=== PATIENT | female | born 1925 | race Caucasian/White ===

== ENCOUNTER 2016-12-21 10:52 | Outpatient (CLI) ==
[2016-12-22 00:48] VITALS: BMI 18.4
== END 2016-12-21 10:53 | disposition home or self-care (01) ==
LOC: AMBL 10:52
PROVIDERS: ATTEND Internal Medicine
DX: R41.82 Altered mental status, unspecified (principal); R42 Dizziness and giddiness; F03.90 Unspecified dementia, unspecified severity, without behavioral disturbance, psychotic disturbance, mood disturbance, and anxiety; Z95.0 Presence of cardiac pacemaker

== ENCOUNTER 2016-12-21 11:05 | Emergency (ER) ==
[2016-12-21 11:12] VITALS: BP 126/76; TEMP 97.9; BMI 17.2
[2016-12-21 12:18] LABS: BASOPHILS # (AUTO) 0.1 K/uL (0-0.2); EOSINOPHILS # (AUTO) 0.1 K/ul (0.0-0.7); EOSINOPHILS % (AUTO) 1.6 % (0.0-7.0); HEMATOCRIT 37.9 % (37.0-47.0); HEMOGLOBIN 12.4 g/dl (12.0-16.0); IMMATURE GRANULOCYTE % (AUTO) 0.3 % (0.0-5.0); LYMPHOCYTES # (AUTO) 1.1 K/uL (0.60-3.4); LYMPHOCYTES % (AUTO) 17.8 (10.0-50.0); MEAN CORPUSCULAR HGB CONC 32.7 (31.8-35.4); MEAN CORPUSCULAR VOLUME 94.8 fl (81.0-99.0); MONOCYTES # (AUTO) 0.6 K/uL (0.4-2.0); MONOCYTES % (AUTO) 9.9 (0-10); NEUTROPHILS # (AUTO) 4.4 K/ul (2.0-6.9); NEUTROPHILS % (AUTO) 69.4; PLATELET COUNT 225 10^3/uL (140-440); WHITE BLOOD COUNT 6.29 K/ul (4.6-10.2)
--- NOTE | 2016-12-21 12:30 | DI ---
EXAM: CHEST FRONTAL VIEW HISTORY: Cough. COMPARISON: None FINDINGS: Heart size is borderline enlarged. There is mild to moderate aortic atherosclerosis. Le ft-sided pacemaker unit is noted. There is diffuse, chronic appearing interstitial accentuation. L ungs are hyperinflated and there is relative lucency of the lung zones suggesting emphysema. Discoi d opacity in the left lower lung may represent scarring, atelectasis or focal pneumonia. No pleural fluid. IMPRESSION: A thin discoid opacity in the left lower lobe could represent atelectasis, scarring or mild pneumonia.
--- NOTE | 2016-12-21 12:44 | CT ---
EXAM: CT BRAIN HISTORY: Altered mental status TECHNIQUE: CT brain without intravenous contrast. 5-mm axial sections with Reformations. COMPARISON: None FINDINGS: There is generalized atrophy, not inconsistent with age. Moderately severe chronic microvascular is chemic change is suggested. Brain otherwise is unremarkable without distinct evidence of hemorrhage or large vessel distribution recent ischemic infarction. There is no suggestion of acute hydrocepha aravind or subdural fluid collection. No mass or mass effect. Cranium is within normal limits. Mastoid air cells are aerated. The visualized paranasal sinuses are clear. IMPRESSION: Involutional changes as described. No acute intracranial process identified.
[2016-12-21 12:49] LABS: ALANINE AMINOTRANSFERASE 16 U/L (12-78); ALBUMIN 3.7 g/dL (3.4-5.0); ALKALINE PHOSPHATASE 88 U/L (53-141); ANION GAP 11.6; ASPARTATE AMINO TRANSFERASE 16 U/L (15-37); BILIRUBIN,TOTAL 0.64 mg/dL (0.00-1.20); BLOOD UREA NITROGEN 11 mg/dL (7-18); BUN/CREATININE RATIO 12.79; CALCIUM 9.2 mg/dL (8.2-10.2); CARBON DIOXIDE 28 mmol/L (23-31); CHLORIDE 104 mmol/L (98-107); CREATININE 0.86 mg/dL (0.60-1.30); GLUCOSE 98 mg/dL (82-115); POTASSIUM 3.6 mmol/L (3.5-5.10); SODIUM 140 mmol/L (136-145); TOTAL PROTEIN 7.4 g/dL (5.8-8.1)
[2016-12-21 13:00] LABS: BILIRUBIN,URINE 1+ (NEGATIVE); KETONES,URINE Trace (NEGATIVE); LEUKOCYTE ESTERASE ,URINE 3+ (NEGATIVE); NITRITE,URINE Positive (NEGATIVE); PH,URINE 6.5 (5-9); PROTEIN,URINE 1+ (NEGATIVE); URINE, BLOOD Trace-intact (NEGATIVE)
[2016-12-21 13:04] LABS: ADD URINE MICROSCOPIC YES
[2016-12-21 13:05] LABS: BACTERIA,URINE 2+ (NOT PRESENT)
[2016-12-21] MEDS ORDERED: LIDOCAINE 1 % AMP 5 ML (SUTURES) IM STA (13:06)
[2016-12-21] MEDS ORDERED: ROCEPHIN IM STA (13:06)
--- NOTE | 2016-12-21 13:10 | ED.PDOC ---
General ED Provider: Dr. DARWIN PUTNAM Chief Complaint: Altered Mental Status Stated Complaint: altered Time Seen by Physician: 11:10 (arrived fully intact) Mode of Arrival: Ambulance Information Source: Patient Exam Limitations: No limitations Primary Care Provider: SAURABH GLORIA Nursing and Triage Documentation Reviewed and Agree: Yes Neurological Complaint Exam - Altered Mental Status Complaint/Exam Current Mental Status: Confusion Onset: Gradual Symptoms Are: Resolved Initial Severity: Mild Current Severity: None Eye Deviation Present: No Aggravating: Reports: None Alleviating: Reports: Spontaneous resolution Associated Signs and Symptoms: Denies: Dizziness, Weakness, Headache, Fever, Illness, Nuchal rigidity, Seizure, Nausea, Vomiting, Recently depressed, Trauma Review of Systems - Review Of Systems Constitutional: Reports: No symptoms Eyes: Reports: No symptoms Ears, Nose, Mouth, Throat: Reports: No symptoms Respiratory: Reports: No symptoms Cardiac: Reports: No symptoms GI: Reports: No symptoms : Reports: No symptoms Musculoskeletal: Reports: No symptoms Skin: Reports: No symptoms Neurological: Reports: Cognitive dysfunction Endocrine: Reports: No symptoms Hematologic/Lymphatic: Reports: No symptoms All Other Systems: Reviewed and Negative Past Medical History - Past Medical History Previously Healthy: No Endocrine: Reports: None Cardiovascular: Reports: None Respiratory: Reports: None Hematological: Reports: None Gastrointestinal: Reports: None Genitourinary: Reports: None Neuro/Psych: Reports: None Musculoskeletal: Reports: None Cancer: Reports: None Last Menstrual Period: n/a - Surgical History General Surgical History: Reports: Unknown - Family History Family History: Reports: Unknown - Social History Smoking Status: Former smoker Hx Substance Use: No Alcohol Screening: None Physical Exam - Physical Exam Appearance: Well-appearing, No pain distress, Well-nourished Eyes: NISREEN, EOMI, Conjunctiva clear ENT: Ears normal, Nose normal, Oropharynx normal Respiratory: Airway patent, Breath sounds clear, Breath sounds equal, Respirations nonlabored Cardiovascular: RRR, Pulses normal, No rub, No murmur GI/: Soft, Nontender, No masses, Bowel sounds normal, No Organomegaly Musculoskeletal: Normal strength, ROM intact, No edema, No calf tenderness Skin: Warm, Dry, Normal color Neurological: Sensation intact, Motor intact, Reflexes intact, Cranial nerves intact, Alert, Oriented Psychiatric: Affect appropriate, Mood appropriate Interpretation - Radiology Interpretation Radiology Interpretation By: Radiologist Radiology Results: No acute changes Re-Evaluation - Re-Evaluation Time of Re-Evaluation: 12:00 Status: Improved Vital Signs Stable: Yes Pain Level: 0 Appearance: NAD Lungs: Clear Skin: Warm and Dry Neuro: Alert and Oriented X3 CV: RRR - Re-Evaluation Time of Re-Evaluation: 13:10 (fully intact robbin at bedside) Status: Improved Vital Signs Stable: Yes Pain Level: 0 Appearance: NAD Skin: Warm and Dry Neuro: Alert and Oriented X3 CV: RRR Critical Care Note - Critical Care Note Total Time (mins): 0 Course - Course Hematology/Chemistry: 12/21/16 12:05 12/21/16 12:05 Orders, Labs, Meds: Lab Review 12/21/16 12/21/16 12:05 12:42 WBC 6.29 RBC 4.00 L Hgb 12.4 Hct 37.9 MCV 94.8 MCH 31.0 MCHC 32.7 RDW Coeff of Zack 14.0 Plt Count 225 Immature Gran % (Auto) 0.3 Neut % (Auto) 69.4 Lymph % (Auto) 17.8 [place] % (Auto) 9.9 Eos % (Auto) 1.6 Baso % (Auto) 1.0 Immature Gran # (Auto) 0.0 Neut # 4.4 Lymph # 1.1 [place] # 0.6 Eos # 0.1 Baso # 0.1 Sodium 140 Potassium 3.6 Chloride 104 Carbon Dioxide 28 Anion Gap 11.6 BUN 11 Creatinine 0.86 Estimated GFR (MDRD) 62.00 BUN/Creatinine Ratio 12.79 Glucose 98 Lactic Acid 9.0 Calcium 9.2 Total Bilirubin 0.64 AST 16 ALT 16 Alkaline Phosphatase 88 Troponin I < 0.0100 Total Protein 7.4 Albumin 3.7 Globulin 3.7 Albumin/Globulin Ratio 1.00 Urine Color Yellow Urine Clarity Cloudy Urine pH 6.5 Ur Specific Whittaker 1.015 Urine Protein 1+ Urine Glucose (UA) Negative Urine Ketones Trace Urine Blood Trace-intact Urine Nitrite Positive Urine Bilirubin 1+ Urine Urobilinogen 1.0 Ur Leukocyte Esterase 3+ Urine Microscopic RBC 2-5 Urine Microscopic WBC 50-100 Ur Squamous Epith Cells Not present Urine Bacteria 2+ Orders Category Date Time Status EKG-(ED ONLY) Stat CARDIO 12/21/16 11:42 Completed BLOOD CULTURE Stat LAB 12/21/16 12:05 Received CBC W/ AUTO DIFF Stat LAB 12/21/16 12:05 Completed COMPREHENSIVE METABOLIC PANEL Stat LAB 12/21/16 12:05 Completed LACTIC ACID Stat LAB 12/21/16 12:05 Completed TROPONIN I Stat LAB 12/21/16 12:05 Completed URINALYSIS C & S IF INDICATED Stat LAB 12/21/16 12:42 Completed URINE CULTURE Stat LAB 12/21/16 12:42 Received Ceftriaxone Sodium [Rocephin] MEDS 12/21/16 13:06 Stat 1 gm IM ONCE STA Lidocaine HCl/Pf [Lidocaine 1 % Amp 5 ml (Sutures)] MEDS 12/21/16 13:06 Stat 2.1 ml IM ONCE STA CHEST, 1V AP ONLY Stat RADS 12/21/16 11:[address] HEAD W/O CONTRAST Stat RADS 12/21/16 11:41 Completed Medications Generic Name Dose Route Start Last Admin Trade Name Freq PRN Reason Stop Dose Admin Ceftriaxone Sodium 1 gm 12/21/16 13:06 Rocephin IM 12/21/16 13:07 ONCE STA Lidocaine HCl 2.1 ml 12/21/16 13:06 Lidocaine 1 % Amp 5 Ml (Sutures) IM 12/21/16 13:07 ONCE STA Vital Signs: Temp Pulse Resp BP Pulse Ox 12/21/16 11:05 97.9 F 67 16 126/76 96 Departure - Departure Time of Disposition: 13:10 Disposition: HOME SELF-CARE Discharge Problem: Altered mental status, Urinary tract infection Instructions: Urinary Tract Infection in Women (ED) Condition: Good Pt referred to PMD for follow-up: No Additional Instructions: Please call your Family Physician as soon as possible to schedule a follow-up appointment. Prescriptions: Sulfamethoxazole/Trimethoprim [Bactrim Ds 800/160 mg] 1 tab PO Q12HR #14 tablet Allergies/Adverse Reactions: Allergies No Known Allergies Allergy (Unverified 12/21/16 11:15) Home Medications: Ambulatory Orders Aspirin 81 mg PO DAILY 12/21/16 Digoxin 125 mcg PO DAILY 12/21/16 Sulfamethoxazole/Trimethoprim [Bactrim Ds 800/160 mg] 1 tab PO Q12HR #14 tablet 12/21/16
== END 2016-12-21 14:00 | disposition home or self-care (01) ==
LOC: ED 11:05
DX: N39.0 Urinary tract infection, site not specified (principal); R41.82 Altered mental status, unspecified; Z79.899 Other long term (current) drug therapy
CPT/HCPCS: 36415; 80053; 81001; 83605; 84484; 85025; 87040; 87086; 93005; 93010; 96375; 99283

== ENCOUNTER 2016-12-21 22:30 | Inpatient (IN) ==
[2016-12-21] MEDS ORDERED: SODIUM CHLORIDE 1,000 ML IV STA (22:34)
[2016-12-21 22:53] LABS: BASOPHILS # (AUTO) 0.1 K/uL (0-0.2); BASOPHILS % (AUTO) 0.6 % (0.0-3.0); EOSINOPHILS # (AUTO) 0.1 K/ul (0.0-0.7); EOSINOPHILS % (AUTO) 1.5 % (0.0-7.0); HEMATOCRIT 40.2 % (37.0-47.0); HEMOGLOBIN 13.3 g/dl (12.0-16.0); IMMATURE GRANULOCYTE % (AUTO) 0.3 % (0.0-5.0); LYMPHOCYTES % (AUTO) 10.8 (10.0-50.0); MEAN CORPUSCULAR HEMOGLOBIN 31.3 pg (27.0-31.0); MEAN CORPUSCULAR HGB CONC 33.1 (31.8-35.4); MEAN CORPUSCULAR VOLUME 94.6 fl (81.0-99.0); MONOCYTES # (AUTO) 0.9 K/uL (0.4-2.0); MONOCYTES % (AUTO) 9.9 (0-10); NEUTROPHILS % (AUTO) 76.9; PLATELET COUNT 241 10^3/uL (140-440); RED BLOOD COUNT 4.25 10^6/ul (4.20-5.40); WHITE BLOOD COUNT 9.05 K/ul (4.6-10.2)
--- NOTE | 2016-12-21 23:10 | ED.PDOC ---
General ED Provider: Dr. BRAYAN STEINBERG-ER Chief Complaint: Altered Mental Status Stated Complaint: she was seen this am for confusion --dx with uti and tx--back tonight with continued confusion Time Seen by Physician: 22:35 Mode of Arrival: Ambulance Information Source: Patient, EMT Exam Limitations: Dementia, Altered mental status Nursing and Triage Documentation Reviewed and Agree: Yes Neurological Complaint Exam - Altered Mental Status Complaint/Exam Current Mental Status: Confusion Last Known Well: yesterday Onset: Gradual Symptoms Are: Still present Initial Severity: Mild Current Severity: Mild Eye Deviation Present: No Character: Reports: Confusion. Denies: Agitation, Responsiveness, Lethargy Aggravating: Reports: None Alleviating: Reports: None Associated Signs and Symptoms: Denies: Dizziness, Weakness, Headache, Fever, Illness, Nuchal rigidity, Seizure, Nausea, Vomiting, Recently depressed, Trauma Related History: Reports: Similar episode Cardiac Risk Factors: Reports: None CVA Risk Factors: Reports: Hypertension Related Surgical History: Reports: None Carotid Bruit Present: No Glascow Coma Scale (see protocol): 14 Nystagmus Present: No Gag Reflex Present: Yes Meningeal Signs Positive: No Focal Weakness: Present: None Focal Sensory Loss: Present: None Gait: Unsteady [id number]: Normal Findings Romberg Test Positive: No Babinski Sign: Negative Right, Negative Left Heel to Toe Normal: Yes Signs of Injury: Present: Normal findings Thrombolytics Considered: No Differential Diagnoses: Metabolic Disorder Review of Systems - Review Of Systems Constitutional: Reports: Fever Eyes: Reports: No symptoms Ears, Nose, Mouth, Throat: Reports: No symptoms Respiratory: Reports: No symptoms Cardiac: Reports: No symptoms GI: Reports: No symptoms : Reports: No symptoms Musculoskeletal: Reports: No symptoms Skin: Reports: No symptoms Neurological: Reports: Cognitive dysfunction Endocrine: Reports: No symptoms Hematologic/Lymphatic: Reports: No symptoms All Other Systems: Reviewed and Negative Past Medical History - Past Medical History Previously Healthy: No Endocrine: Reports: None Cardiovascular: Reports: None Respiratory: Reports: None Hematological: Reports: None Gastrointestinal: Reports: None Genitourinary: Reports: None Neuro/Psych: Reports: None Musculoskeletal: Reports: None Cancer: Reports: None Last Menstrual Period: UNKNOWN - Surgical History General Surgical History: Reports: Unknown - Family History Family History: Reports: Unknown - Social History Smoking Status: Former smoker Hx Substance Use: No Alcohol Screening: None Lives: With family - Immunizations Tetanus Shot up to Date: (UNKNOWN) Physical Exam - Physical Exam Appearance: Well-appearing, No pain distress, Well-nourished Eyes: NISREEN ENT: Ears normal, Nose normal, Oropharynx normal Neck: Supple Respiratory: Airway patent, Breath sounds clear, Breath sounds equal, Respirations nonlabored Cardiovascular: RRR, Pulses normal, No rub, No murmur GI/: Soft, Nontender, No masses, Bowel sounds normal, No Organomegaly Musculoskeletal: Normal strength, ROM intact, No edema, No calf tenderness Skin: Warm, Dry, Normal color Neurological: Sensation intact, Motor intact, Reflexes intact, Cranial nerves intact, Alert, Oriented Psychiatric: Affect appropriate, Mood appropriate Interpretation - Radiology Interpretation Radiology Interpretation By: Radiologist Radiology Results: Negative Exam Interpreted: CT Scan Physician Notification - Case Discussed Physician Notified: dr estrada Time of Notification: 23:42 Critical Care Note - Critical Care Note Total Time (mins): 0 Course - Course Hematology/Chemistry: 12/21/16 22:45 12/21/16 22:45 Orders, Labs, Meds: Lab Review 12/21/16 12/21/16 22:31 22:45 WBC 9.05 RBC 4.25 Hgb 13.3 Hct 40.2 MCV 94.6 MCH 31.3 H MCHC 33.1 RDW Coeff of Zack 14.0 Plt Count 241 Immature Gran % (Auto) 0.3 Neut % (Auto) 76.9 Lymph % (Auto) 10.8 [place] % (Auto) 9.9 Eos % (Auto) 1.5 Baso % (Auto) 0.6 Immature Gran # (Auto) 0.0 Neut # 7.0 H Lymph # 1.0 [place] # 0.9 Eos # 0.1 Baso # 0.1 D-Dimer (Manual) 894.87 Puncture Site Rb O2 Saturation 95.0 ABG pH 7.433 ABG pCO2 38.5 ABG pO2 73.0 L ABG HCO3 25.7 ABG Total CO2 27 ABG Base Excess 1 Edu Test + FiO2 % 21.0 Sodium 141 Potassium 3.7 Chloride 106 Carbon Dioxide 26 Anion Gap 12.7 BUN 16 Creatinine 0.86 Estimated GFR (MDRD) 62.00 BUN/Creatinine Ratio 18.60 Glucose 101 Lactic Acid 8.5 Calcium 9.6 Total Bilirubin 0.49 AST 17 ALT 18 Alkaline Phosphatase 99 Ammonia 26 Total Creatine Kinase 60 Troponin I < 0.0100 Total Protein 7.8 Albumin 3.8 Globulin 4.0 Albumin/Globulin Ratio 0.95 Procalcitonin < 0.05 Orders Category Date Time Status ABG DRAW REQUEST Stat CARDIO 12/21/16 22:31 Completed EKG-(ED ONLY) Stat CARDIO 12/21/16 22:31 Completed Commissioning Engineer [ED TRAVEL COUNSELOR APPLIED] .ONCE EMERGENCY 12/21/16 22:34 Active IV [ED IV/MEDIPORT/POWERPORT] .ONCE EMERGENCY 12/21/16 22:32 Active ABG Stat LAB 12/21/16 22:31 Completed AMMONIA Stat LAB 12/21/16 22:45 Completed BLOOD CULTURE Stat LAB 12/21/16 22:45 Received CBC W/ AUTO DIFF Stat LAB 12/21/16 22:45 Completed COMPREHENSIVE METABOLIC PANEL Stat LAB 12/21/16 22:45 Completed CREATINE KINASE Stat LAB 12/21/16 22:45 Completed D-DIMER Stat LAB 12/21/16 22:45 Completed LACTIC ACID Stat LAB 12/21/16 22:45 Completed PROCALCITONIN Stat LAB 12/21/16 22:45 Completed TROPONIN I Stat LAB 12/21/16 22:45 Completed 0.9 % Sodium Chloride [Saline Flush] MEDS 12/21/16 22:32 Ordered 1 syr IVF PRN PRN Sodium Chloride 0.9% [Sodium Chloride] 1,000 ml MEDS 12/21/16 22:34 Active IV 100 mls/hr CT ABDOMEN/PELVIS WO CONTRAST Stat RADS 12/21/16 22:[address] CHEST W/O CONTRAST Stat RADS 12/21/16 22:[address] HEAD W/O CONTRAST Stat RADS 12/21/16 22:33 Completed Medications Generic Name Dose Route Start Last Admin Trade Name Freq PRN Reason Stop Dose Admin Sodium Chloride 1,000 mls @ 100 mls/hr 12/21/16 22:34 12/21/16 23:11 Sodium Chloride IV 12/22/16 08:33 100 mls/hr .Q10H STA Administration Sodium Chloride 1 syr 12/21/16 22:32 12/21/16 23:10 Saline Flush IVF 1 syr PRN PRN Administration To flush IV Vital Signs: Temp Pulse Resp BP Pulse Ox 12/21/16 22:31 99.8 F H 66 20 149/78 H 97 Departure - Departure Time of Disposition: 23:42 Disposition: ADMITTED INPATIENT Discharge Problem: Encephalopathy UTI (urinary tract infection) Qualifiers: Urinary tract infection type: site unspecified Hematuria presence: without hematuria Qualifier Code: (N39.0) Urinary tract infection, site not specified Instructions: Altered Mental Status (ED) Condition: Stable Pt referred to PMD for follow-up: No Allergies/Adverse Reactions: Allergies No Known Allergies Allergy (Unverified 12/21/16 11:15) Home Medications: Ambulatory Orders Aspirin 81 mg PO DAILY 12/21/16 Digoxin 125 mcg PO DAILY 12/21/16 Sulfamethoxazole/Trimethoprim [Bactrim Ds 800/160 mg] 1 tab PO Q12HR #14 tablet 12/21/16 Disposition Discussed With: Patient
[2016-12-21 23:18] LABS: ALANINE AMINOTRANSFERASE 18 U/L (12-78); ALBUMIN 3.8 g/dL (3.4-5.0); ALBUMIN/GLOBULIN RATIO 0.95; ALKALINE PHOSPHATASE 99 U/L (53-141); ANION GAP 12.7; ASPARTATE AMINO TRANSFERASE 17 U/L (15-37); BILIRUBIN,TOTAL 0.49 mg/dL (0.00-1.20); BLOOD UREA NITROGEN 16 mg/dL (7-18); CALCIUM 9.6 mg/dL (8.2-10.2); CARBON DIOXIDE 26 mmol/L (23-31); CHLORIDE 106 mmol/L (98-107); CREATINE KINASE 60 U/L; CREATININE 0.86 mg/dL (0.60-1.30); GLUCOSE 101 mg/dL (82-115); POTASSIUM 3.7 mmol/L (3.5-5.10); SODIUM 141 mmol/L (136-145); TOTAL PROTEIN 7.8 g/dL (5.8-8.1)
[2016-12-21 23:28] LABS: ABG BASE EXCESS 1 (-2.0-2.0); ABG HCO3 25.7 (22.0-26.0); ABG PCO2 38.5 mmHg (35-45); ABG PH 7.433 (7.35-7.45); ABG TCO2 27 (22.0-28.0)
--- NOTE | 2016-12-21 23:34 | CT ---
EXAM: CT head without contrast 12/21/2016. Sagittal and coronal reformatted images obtained HISTORY: Encephalopathy COMPARISON: 12/21/2016 FINDINGS: There is no evidence of intracranial hemorrhage. The midline is maintained. There is no hydrocephalus. Generalized atrophy. Chronic small vessel ischemic changes. No cerebellar tonsilla r ectopia. Evaluation of the calvarium shows no fracture. Left mastoid effusion. IMPRESSION: 1. No intracranial hemorrhage. 2. Atrophy and small vessel ischemic change. 3. Left mastoid effusion.
--- NOTE | 2016-12-21 23:37 | CT ---
Exam: CT of the chest without contrast History: Abnormal chest radiograph FINDINGS: The lung windows show minor atelectasis or scarring of the left upper lobe correlating wi th chest radiograph. No infiltrative opacities. The heart is enlarged. Atherosclerotic calcificat ion of the aorta and coronary arteries. No aneurysmal dilation of the aorta. No acute findings of the chest wall soft tissues or bony thorax. Prior healed left rib fractures. Impression: 1. Minor left-sided scarring or atelectasis. No acute findings of the chest otherwise.
--- NOTE | 2016-12-21 23:39 | CT ---
EXAM: CT abdomen pelvis without intravenous contrast 12/21/2016. Sagittal and coronal reformatted images obtained HISTORY: Urinary tract infection. Question obstruction. COMPARISON: None. FINDINGS: The liver, gallbladder show no acute abnormality. The adrenal glands and kidneys show no acute process. No urinary obstruction. The spleen shows no acute process. The pancreas is not we ll visualized. Small bowel is normal in caliber without evidence of obstruction. There is a prominent quantity of stool in the colon which may relate to constipation/fecal stasis. No evidence of obstruction. There is extensive colonic diverticulosis. No evidence of acute diverticulitis. No evidence of appendicitis. No gross abnormality of the urinary bladder. The bladder is decompressed. IMPRESSION: 1. No urinary or bowel obstruction. 2. No evidence of appendicitis 3. Diverticulosis without diverticulitis. 4. Technically limited examination due to the lack of intravenous contrast. 5. Subacute partially healed fracture of the left ninth and tenth ribs.
[2016-12-22 00:48] VITALS: BMI 18.4
[2016-12-22] MEDS: ROCEPHIN 1 GM in SODIUM CHLORIDE 100 ML IV SCH ×2 (01:10→08:41)
[2016-12-22] MEDS: ATIVAN PO PRN ×2 (01:28→18:26)
[2016-12-22 05:57] LABS: BASOPHILS # (AUTO) 0.1 K/uL (0-0.2); BASOPHILS % (AUTO) 0.7 % (0.0-3.0); EOSINOPHILS # (AUTO) 0.2 K/ul (0.0-0.7); EOSINOPHILS % (AUTO) 2.4 % (0.0-7.0); HEMATOCRIT 36.4 % (37.0-47.0); HEMOGLOBIN 11.9 g/dl (12.0-16.0); IMMATURE GRANULOCYTE % (AUTO) 0.3 % (0.0-5.0); LYMPHOCYTES # (AUTO) 1.4 K/uL (0.60-3.4); LYMPHOCYTES % (AUTO) 20.1 (10.0-50.0); MEAN CORPUSCULAR HEMOGLOBIN 31.1 pg (27.0-31.0); MEAN CORPUSCULAR HGB CONC 32.7 (31.8-35.4); MONOCYTES # (AUTO) 0.7 K/uL (0.4-2.0); MONOCYTES % (AUTO) 10.4 (0-10); NEUTROPHILS # (AUTO) 4.7 K/ul (2.0-6.9); NEUTROPHILS % (AUTO) 66.1; PLATELET COUNT 213 10^3/uL (140-440); RED BLOOD COUNT 3.83 10^6/ul (4.20-5.40); WHITE BLOOD COUNT 7.03 K/ul (4.6-10.2)
[2016-12-22 06:15] LABS: ALBUMIN 3.3 g/dL (3.4-5.0); ANION GAP 11.2; BILIRUBIN,TOTAL 0.57 mg/dL (0.00-1.20); BUN/CREATININE RATIO 17.94; CALCIUM 8.6 mg/dL (8.2-10.2); CREATININE 0.78 mg/dL (0.60-1.30); POTASSIUM 3.2 mmol/L (3.5-5.10); TOTAL PROTEIN 6.6 g/dL (5.8-8.1)
[2016-12-22] MEDS: ASPIRIN CHEWABLE PO SCH (08:45)
[2016-12-22] MEDS: SODIUM CHLORIDE 1,000 ML IV SCH (08:45)
[2016-12-22] MEDS ORDERED: ASPIRIN CHEWABLE PO SCH (09:00)
[2016-12-22] MEDS: LANOXIN PO SCH (11:18)
--- NOTE | 2016-12-22 13:01 | PCM.PROG ---
Attending Provider: ATTENDING PROVIDER: Dr. SUKHJINDER FORBES DATE OF SERVICE: 12/22/16 SUBJECTIVE: This 89 year old WHITE/ F was hospitalized 12/21/16. The patient presented to ER last night and was seen by Dr. Serra for confusion, change in mental status and wandering on the streets. The police brought her in. Apparently, the patient was seen the day before for UTI and was put on Bactrim. The patient was confused to person place and time. CT scan of the head did not show any stroke. At that time, the patient was admitted for IV antibiotics, IV fluids, change in mental status most likely from worsening Alzheimer's dementia and encephalopathy. REVIEW OF SYSTEMS: CONSTITUTIONAL: No fever, no chills. ENDOCRINE: No weight loss or weight gain. HEENT: No sinus drainage, no sore throat. CVS: No angina symptoms. No CHF symptoms. No palpitations. No atypical chest pain for CAD. No shortness of breath. RESPIRATORY: No cough, no hemoptysis. GI: No melena. No abdominal pain. No nausea, no vomiting. : No hematuria. No polyuria. SKIN: No rash. No wounds. MUSCULOSKELETAL: No pain. SENIOR DEVOPS ENGINEER: No blackout, no dizziness. No headache. No double vision. PSYCHIATRIC: Not anxious; no depression. No suicidal thoughts. No homicidal thoughts. PHYSICAL EXAMINATION: GENERAL: Cachetic appearing lady, lying in bed in no distress. VITAL SIGNS: Temperature 96.9 F, Pulse 63, Respiratory Rate 24, BP 162/81, Pulse Ox 94% HEENT: Normocephalic, atraumatic. Mucosa is dry, pallor positive. NECK: No JVP, no carotid bruit. No lymphadenopathy. CARDIAC: S1, S2, no S3. No murmur, gallop or regurgitation. LUNGS: Decreased entry. Clear to auscultation. ABDOMEN: Soft, non-tender. Bowel sounds active. No rigidity, guarding or CVA tenderness. EXTREMITIES: No clubbing, cyanosis or edema. NEUROLOGIC: Awake, alert; not oriented to time, place or person. LYMPHATIC: No palpable lymph nodes SKIN: Not dry. Intact. MUSCULOSKELETAL: No joint swelling. LAB REVIEW: 12/22/16 05:54 12/22/16 05:54 12/22/16 05:54: WBC 7.03, RBC 3.83 L, Hgb 11.9 L, Hct 36.4 L, MCV 95.0, MCH 31.1 H, MCHC 32.7, RDW Coeff of Zack 14.1, Plt Count 213, Immature Gran % (Auto) 0.3, Neut % (Auto) 66.1, Lymph % (Auto) 20.1, Arthur % (Auto) 10.4 H, Eos % (Auto ) 2.4, Baso % (Auto) 0.7, Immature Gran # (Auto) 0.0, Neut # 4.7, Lymph # 1.4, Arthur # 0.7, Eos # 0.2, Baso # 0.1, Sodium 141, Potassium 3.2 L, Chloride 106, Carbon Dioxide 27, Anion Gap 11.2, BUN 14, Creatinine 0.78, Estimated GFR (MDRD ) 70.00, BUN/Creatinine Ratio 17.94, Glucose 90, Calcium 8.6, Total Bilirubin 0.57, AST 15, ALT 15, Alkaline Phosphatase 84, Total Protein 6.6, Albumin 3.3 L , Globulin 3.3, Albumin/Globulin Ratio 1.00 ASSESSMENT: 1. Change in mental status encephalopathy 2. UTI 3. Alzheimer's dementia 4. Hypokalemia 5. Anemia 6. Permanent pacemaker 7. History of atrial fibrillation per family 8. History of blood clots PLAN: 1. Continue Rocephin 2. Check Digoxin level 3. IV fluids 4. I & O's 5. Discuss plan of care and action with the family Plan and coordination of the patient's care discussed in the presence of Cardiology Nurse and nurse. CONDITION: Stable SCRIBED BY: KALEB BAGLEY Buckle Attacher scribed while in presence of service performed by Dr. SUKHJINDER FORBES on 12/22/16 ([id number])
[2016-12-22] MEDS ORDERED: HALDOL IM STA (19:49)
[2016-12-23 04:37] LABS: BASOPHILS # (AUTO) 0.1 K/uL (0-0.2); BASOPHILS % (AUTO) 0.7 % (0.0-3.0); EOSINOPHILS # (AUTO) 0.1 K/ul (0.0-0.7); EOSINOPHILS % (AUTO) 1.6 % (0.0-7.0); HEMATOCRIT 37.6 % (37.0-47.0); HEMOGLOBIN 12.4 g/dl (12.0-16.0); IMMATURE GRANULOCYTE % (AUTO) 0.3 % (0.0-5.0); LYMPHOCYTES # (AUTO) 0.8 K/uL (0.60-3.4); LYMPHOCYTES % (AUTO) 10.9 (10.0-50.0); MONOCYTES # (AUTO) 0.7 K/uL (0.4-2.0); MONOCYTES % (AUTO) 10.1 (0-10); NEUTROPHILS # (AUTO) 5.2 K/ul (2.0-6.9); NEUTROPHILS % (AUTO) 76.4; PLATELET COUNT 194 10^3/uL (140-440); WHITE BLOOD COUNT 6.86 K/ul (4.6-10.2)
[2016-12-23 04:54] LABS: ALBUMIN 3.5 g/dL (3.4-5.0); ALBUMIN/GLOBULIN RATIO 0.92; ANION GAP 10.7; BILIRUBIN,TOTAL 0.59 mg/dL (0.00-1.20); BUN/CREATININE RATIO 11.84; CALCIUM 9.1 mg/dL (8.2-10.2); CREATININE 0.76 mg/dL (0.60-1.30); POTASSIUM 3.7 mmol/L (3.5-5.10); TOTAL PROTEIN 7.3 g/dL (5.8-8.1)
[2016-12-23] MEDS: ROCEPHIN IM SCH (09:33)
[2016-12-23] MEDS: LIDOCAINE 1 % AMP 5 ML (SUTURES) IM SCH (09:34)
--- NOTE | 2016-12-23 11:12 | PCM.PROG ---
Attending Provider: ATTENDING PROVIDER: Dr. SUKHJINDER FORBES DATE OF SERVICE: 12/23/16 SUBJECTIVE: This 89 year old WHITE/ F was hospitalized 12/21/16. The patient has been agitated, hitting at the nurse, pulling her IV line out. She was given Haldol 0.5 mg and Ativan 1 mg. The patient remains confused and requiring one on one supervision. REVIEW OF SYSTEMS: CONSTITUTIONAL: No fever, no chills. ENDOCRINE: No weight loss or weight gain. HEENT: No sinus drainage, no sore throat. CVS: No angina symptoms. No CHF symptoms. No palpitations. No atypical chest pain for CAD. No shortness of breath. RESPIRATORY: No cough, no hemoptysis. GI: No melena. No abdominal pain. No nausea, no vomiting. : No hematuria. No polyuria. SKIN: No rash. No wounds. MUSCULOSKELETAL: No pain. PUBLIC AFFAIRS OFFICER: No blackout, no dizziness. No headache. No double vision. PSYCHIATRIC: Not anxious; no depression. No suicidal thoughts. No homicidal thoughts. PHYSICAL EXAMINATION: GENERAL: Cachetic appearing lady, lying in bed in no distress. VITAL SIGNS: Temperature 96.6 F, Pulse 61, Respiratory Rate 20, BP 165/85, Pulse Ox 97% HEENT: Normocephalic, atraumatic. Mucosa is dry, pallor positive. NECK: No JVP, no carotid bruit. No lymphadenopathy. CARDIAC: S1, S2, no S3. No murmur, gallop or regurgitation. LUNGS: Decreased breath sounds. Clear to auscultation. ABDOMEN: Soft, non-tender. Bowel sounds active. No rigidity, guarding or CVA tenderness. EXTREMITIES: No clubbing, cyanosis or edema. NEUROLOGIC: Awake, alert, not oriented to time, place or person. LYMPHATIC: No palpable lymph nodes SKIN: Not dry. Intact. MUSCULOSKELETAL: No joint swelling. LAB REVIEW: 12/23/16 04:36 12/23/16 04:36 12/23/16 04:36: WBC 6.86, RBC 4.00 L, Hgb 12.4, Hct 37.6, MCV 94.0, MCH 31.0, MCHC 33.0, RDW Coeff of Zack 13.9, Plt Count 194, Immature Gran % (Auto) 0.3, Neut % (Auto) 76.4, Lymph % (Auto) 10.9, [place] % (Auto) 10.1 H, Eos % (Auto) 1.6 , Baso % (Auto) 0.7, Immature Gran # (Auto) 0.0, Neut # 5.2, Lymph # 0.8, [place] # 0.7, Eos # 0.1, Baso # 0.1, Sodium 142, Potassium 3.7, Chloride 107, Carbon Dioxide 28, Anion Gap 10.7, BUN 9, Creatinine 0.76, Estimated GFR (MDRD) 72.00, BUN/Creatinine Ratio 11.84, Glucose 101, Calcium 9.1, Total Bilirubin 0.59, AST 17, ALT 17, Alkaline Phosphatase 88, Total Protein 7.3, Albumin 3.5, Globulin 3.8, Albumin/Globulin Ratio 0.92 12/22/16 05:05: Digoxin 0.76 L ASSESSMENT: 1. Change in mental status, acute psychosis 2. UTI with gram negative rods 3. Alzheimer's dementia 4. Hypokalemia 5. Anemia 6. Permanent pacemaker 7. History of atrial fibrillation per family 8. History of blood clots 9. Permanent pacemaker 10. Hypertension PLAN: 1. Rocephin 1 gm IM 2. Continue Ativan and Haldol 3. One on one observation/supervision 4. Seroquel 25 mg b.i.d. Plan and coordination of the patient's care discussed in the presence of Manager Financial and nurse. CONDITION: Stable SCRIBED BY: KALEB BAGLEY Hourly Manager scribed while in presence of service performed by Dr. SUKHJINDER FORBES on 12/23/16 ([id number])
[2016-12-23] MEDS: LANOXIN PO SCH (12:11)
[2016-12-23] MEDS: SEROQUEL PO SCH ×4 (12:11→22:49)
[2016-12-23] MEDS: ASPIRIN CHEWABLE PO SCH (12:12)
[2016-12-23] MEDS: SODIUM CHLORIDE 1,000 ML IV SCH (17:35)
[2016-12-23] MEDS ORDERED: ATIVAN IM STA (19:17)
[2016-12-23] MEDS: ATIVAN PO PRN (22:47)
[2016-12-24] MEDS: SODIUM CHLORIDE 1,000 ML IV SCH (02:06)
[2016-12-24 05:34] LABS: BASOPHILS # (AUTO) 0.1 K/uL (0-0.2); BASOPHILS % (AUTO) 0.6 % (0.0-3.0); EOSINOPHILS # (AUTO) 0.1 K/ul (0.0-0.7); EOSINOPHILS % (AUTO) 1.6 % (0.0-7.0); HEMATOCRIT 38.9 % (37.0-47.0); HEMOGLOBIN 12.7 g/dl (12.0-16.0); IMMATURE GRANULOCYTE % (AUTO) 0.2 % (0.0-5.0); LYMPHOCYTES % (AUTO) 12.5 (10.0-50.0); MEAN CORPUSCULAR HEMOGLOBIN 30.8 pg (27.0-31.0); MEAN CORPUSCULAR HGB CONC 32.6 (31.8-35.4); MEAN CORPUSCULAR VOLUME 94.2 fl (81.0-99.0); MONOCYTES # (AUTO) 0.8 K/uL (0.4-2.0); MONOCYTES % (AUTO) 9.9 (0-10); NEUTROPHILS % (AUTO) 75.2; PLATELET COUNT 221 10^3/uL (140-440); RED BLOOD COUNT 4.13 10^6/ul (4.20-5.40); WHITE BLOOD COUNT 8.02 K/ul (4.6-10.2)
[2016-12-24 05:50] LABS: ALBUMIN 3.6 g/dL (3.4-5.0); ALBUMIN/GLOBULIN RATIO 0.92; ANION GAP 12.1; BUN/CREATININE RATIO 11.25; CALCIUM 9.4 mg/dL (8.2-10.2); CREATININE 0.8 mg/dL (0.60-1.30); POTASSIUM 3.1 mmol/L (3.5-5.10); TOTAL PROTEIN 7.5 g/dL (5.8-8.1)
[2016-12-24 06:51] LABS: BILIRUBIN,TOTAL 0.76 mg/dL (0.00-1.20)
[2016-12-24] MEDS: LIDOCAINE 1 % AMP 5 ML (SUTURES) IM SCH (09:05)
[2016-12-24] MEDS: ROCEPHIN IM SCH (09:08)
[2016-12-24] MEDS: LANOXIN PO SCH (10:00)
[2016-12-24] MEDS: ASPIRIN CHEWABLE PO SCH (10:00)
[2016-12-24] MEDS: SEROQUEL PO SCH ×3 (10:00→21:08)
--- NOTE | 2016-12-24 11:05 | PCM.PROG ---
Attending Provider: ATTENDING PROVIDER: Dr. SUKHJINDER FORBES DATE OF SERVICE: 12/24/16 SUBJECTIVE: This 89 year old WHITE/ F was hospitalized 12/21/16. The patient is resting comfortably, awakens easily. She still has agitation and was started on Seroquel. Per nurse, family called questioning the use of Seroquel. I have requested a meeting with the family to discuss this and further plan of care. REVIEW OF SYSTEMS: CONSTITUTIONAL: No fever, no chills. ENDOCRINE: No weight loss or weight gain. HEENT: No sinus drainage, no sore throat. CVS: No angina symptoms. No CHF symptoms. No palpitations. No atypical chest pain for CAD. No shortness of breath. RESPIRATORY: No cough, no hemoptysis. GI: No melena. No abdominal pain. No nausea, no vomiting. : No hematuria. No polyuria. SKIN: No rash. No wounds. MUSCULOSKELETAL: No pain. MAINTENANCE TRAINER: No blackout, no dizziness. No headache. No double vision. PSYCHIATRIC: Not anxious; no depression. No suicidal thoughts. No homicidal thoughts. PHYSICAL EXAMINATION: GENERAL: Cachetic lady lying in bed in no distress. VITAL SIGNS: Temperature 97.3 F, Pulse 69, Respiratory Rate 20, BP 167/93, Pulse Ox 94% HEENT: Normocephalic, atraumatic. Mucosa is dry, pallor positive. NECK: No JVP, no carotid bruit. No lymphadenopathy. CARDIAC: S1, S2, no S3. No murmur, gallop or regurgitation. LUNGS: Clear to auscultation. ABDOMEN: Soft, non-tender. Bowel sounds active. No rigidity, guarding or CVA tenderness. EXTREMITIES: No clubbing, cyanosis or edema. NEUROLOGIC: Awake, alert, confused. LYMPHATIC: No palpable lymph nodes SKIN: Not dry. Intact. MUSCULOSKELETAL: No joint swelling. LAB REVIEW: 12/24/16 05:00 12/24/16 05:00 12/24/16 05:00: WBC 8.02, RBC 4.13 L, Hgb 12.7, Hct 38.9, MCV 94.2, MCH 30.8, MCHC 32.6, RDW Coeff of Zack 13.6, Plt Count 221, Immature Gran % (Auto) 0.2, Neut % (Auto) 75.2, Lymph % (Auto) 12.5, [place] % (Auto) 9.9, Eos % (Auto) 1.6, Baso % (Auto) 0.6, Immature Gran # (Auto) 0.0, Neut # 6.0, Lymph # 1.0, [place] # 0.8, Eos # 0.1, Baso # 0.1, Sodium 140, Potassium 3.1 L, Chloride 103, Carbon Dioxide 28, Anion Gap 12.1, BUN 9, Creatinine 0.80, Estimated GFR (MDRD) 68.00, BUN/Creatinine Ratio 11.25, Glucose 98, Calcium 9.4, Total Bilirubin 0.76, AST 22, ALT 19, Alkaline Phosphatase 90, Total Protein 7.5, Albumin 3.6, Globulin 3.9, Albumin/Globulin Ratio 0.92 ASSESSMENT: 1. Change in mental status, acute psychosis 2. UTI with gram negative rods 3. Alzheimer's dementia 4. Hypokalemia 5. Anemia 6. Permanent pacemaker 7. History of atrial fibrillation per family 8. History of blood clots 9. Permanent pacemaker 10. Hypertension PLAN: 1. Continue same treatment 2. Will schedule a meeting with the family to discuss further plan of care. Plan and coordination of the patient's care discussed in the presence of Butcher Helper and nurse. CONDITION: Stable SCRIBED BY: KALEB BAGLEY Gmat Instructor scribed while in presence of service performed by Dr. SUKHJINDER FORBES on 12/24/16 ([id number])
[2016-12-24] MEDS ORDERED: ZYPREXA IM STA (13:32)
[2016-12-24] MEDS ORDERED: K-DUR PO STA (16:23)
[2016-12-24] MEDS: ATIVAN PO PRN (19:10)
[2016-12-24] MEDS: ARICEPT PO SCH (21:08)
[2016-12-25] MEDS: ATIVAN PO PRN (01:25)
[2016-12-25 05:49] LABS: BASOPHILS % (AUTO) 0.2 % (0.0-3.0); HEMATOCRIT 40.3 % (37.0-47.0); HEMOGLOBIN 13.3 g/dl (12.0-16.0); IMMATURE GRANULOCYTE % (AUTO) 0.4 % (0.0-5.0); LYMPHOCYTES # (AUTO) 0.5 K/uL (0.60-3.4); LYMPHOCYTES % (AUTO) 3.5 (10.0-50.0); MEAN CORPUSCULAR HEMOGLOBIN 31.1 pg (27.0-31.0); MEAN CORPUSCULAR VOLUME 94.2 fl (81.0-99.0); MONOCYTES # (AUTO) 1.1 K/uL (0.4-2.0); MONOCYTES % (AUTO) 8.2 (0-10); NEUTROPHILS # (AUTO) 11.9 K/ul (2.0-6.9); NEUTROPHILS % (AUTO) 87.7; PLATELET COUNT 254 10^3/uL (140-440); RED BLOOD COUNT 4.28 10^6/ul (4.20-5.40); WHITE BLOOD COUNT 13.51 K/ul (4.6-10.2)
[2016-12-25 06:07] LABS: ALBUMIN/GLOBULIN RATIO 0.93; ANION GAP 18.9; BILIRUBIN,TOTAL 1.05 mg/dL (0.00-1.20); BUN/CREATININE RATIO 18.6; CALCIUM 9.6 mg/dL (8.2-10.2); CREATININE 0.86 mg/dL (0.60-1.30); POTASSIUM 3.9 mmol/L (3.5-5.10); TOTAL PROTEIN 8.3 g/dL (5.8-8.1)
[2016-12-25] MEDS ORDERED: ZYPREXA IM STA (08:40)
[2016-12-25] MEDS: ROCEPHIN IM SCH (09:22)
[2016-12-25] MEDS: LIDOCAINE 1 % AMP 5 ML (SUTURES) IM SCH (09:22)
[2016-12-25] MEDS: RISPERDAL PO SCH ×2 (09:22→09:45)
[2016-12-25] MEDS: LANOXIN PO SCH (09:46)
[2016-12-25] MEDS: ASPIRIN CHEWABLE PO SCH (09:46)
[2016-12-25] MEDS: SODIUM CHLORIDE 1,000 ML IV SCH (10:24)
--- NOTE | 2016-12-25 14:00 | PCM.PROG ---
Attending Provider: ATTENDING PROVIDER: Dr. SUKHJINDER FORBES DATE OF SERVICE: 12/25/16 SUBJECTIVE: This 89 year old WHITE/ F was hospitalized 12/21/16. I had a lengthy discussion with family members concerning placement of the patient. The employment evaluator/case manager is working on this. The patient is still having behavioral problems with refusing IV line. She is getting IV Rocephin. REVIEW OF SYSTEMS: CONSTITUTIONAL: No fever, no chills. ENDOCRINE: No weight loss or weight gain. HEENT: No sinus drainage, no sore throat. CVS: No angina symptoms. No CHF symptoms. No palpitations. No atypical chest pain for CAD. No shortness of breath. RESPIRATORY: No cough, no hemoptysis. GI: No melena. No abdominal pain. No nausea, no vomiting. : No hematuria. No polyuria. SKIN: No rash. No wounds. MUSCULOSKELETAL: No pain. BONE GLUE MAKER: No blackout, no dizziness. No headache. No double vision. PSYCHIATRIC: Not anxious; no depression. No suicidal thoughts. No homicidal thoughts. PHYSICAL EXAMINATION: GENERAL: Cachetic appearing female sitting in chair in no distress. VITAL SIGNS: Temperature 97.7 F, Pulse 71, Respiratory Rate 18, BP 139/72, Pulse Ox 94% HEENT: Normocephalic, atraumatic. Mucosa is dry, pallor positive. NECK: No JVP, no carotid bruit. No lymphadenopathy. CARDIAC: S1, S2, no S3. No murmur, gallop or regurgitation. LUNGS: Clear to auscultation. ABDOMEN: Soft, non-tender. Bowel sounds active. No rigidity, guarding or CVA tenderness. EXTREMITIES: No clubbing, cyanosis or edema. NEUROLOGIC: Awake, alert, not oriented to time, place or person. She is confused. LYMPHATIC: No palpable lymph nodes SKIN: Not dry. Intact. MUSCULOSKELETAL: No joint swelling. LAB REVIEW: 12/25/16 05:00 12/25/16 05:00 12/25/16 05:00: WBC 13.51 H D, RBC 4.28, Hgb 13.3, Hct 40.3, MCV 94.2, MCH 31.1 H, MCHC 33.0, RDW Coeff of Zack 13.8, Plt Count 254, Immature Gran % (Auto) 0.4, Neut % (Auto) 87.7, Lymph % (Auto) 3.5 L, [place] % (Auto) 8.2, Eos % (Auto) 0.0, Baso % (Auto) 0.2, Immature Gran # (Auto) 0.1, Neut # 11.9 H, Lymph # 0.5 L, [place] # 1.1, Eos # 0.0, Baso # 0.0, Sodium 139, Potassium 3.9, Chloride 102, Carbon Dioxide 22 L, Anion Gap 18.9, BUN 16, Creatinine 0.86, Estimated GFR ( MDRD) 62.00, BUN/Creatinine Ratio 18.60, Glucose 168 H D, Calcium 9.6, Total Bilirubin 1.05, AST 28, ALT 24, Alkaline Phosphatase 95, Total Protein 8.3 H, Albumin 4.0, Globulin 4.3, Albumin/Globulin Ratio 0.93 ASSESSMENT: 1. Change in mental status, acute psychosis 2. UTI with gram negative rods 3. Alzheimer's dementia 4. Hypokalemia 5. Anemia 6. Permanent pacemaker 7. History of atrial fibrillation per family 8. History of blood clots 9. Permanent pacemaker 10. Hypertension PLAN: 1. Risperdal 1 mg p.o. daily 2. D/C Ativan 3. D/C Seroquel 4. Zyprexa 2.5 mg IM once Plan and coordination of the patient's care discussed in the presence of Telegraph Service Rater and nurse. CONDITION: Guarded SCRIBED BY: KALEB BAGLEY, Mid Level Clinician scribed while in presence of service performed by Dr. SUKHJINDER FORBES on 12/25/16 ([id number])
[2016-12-25] MEDS: ARICEPT PO SCH (20:53)
[2016-12-26] MEDS: SODIUM CHLORIDE 1,000 ML IV SCH ×2 (02:26→15:19)
[2016-12-26 07:05] LABS: BASOPHILS # (AUTO) 0.1 K/uL (0-0.2); BASOPHILS % (AUTO) 0.5 % (0.0-3.0); EOSINOPHILS % (AUTO) 0.3 % (0.0-7.0); HEMATOCRIT 37.7 % (37.0-47.0); HEMOGLOBIN 12.3 g/dl (12.0-16.0); IMMATURE GRANULOCYTE % (AUTO) 0.5 % (0.0-5.0); LYMPHOCYTES # (AUTO) 0.6 K/uL (0.60-3.4); LYMPHOCYTES % (AUTO) 4.8 (10.0-50.0); MEAN CORPUSCULAR HEMOGLOBIN 31.1 pg (27.0-31.0); MEAN CORPUSCULAR HGB CONC 32.6 (31.8-35.4); MEAN CORPUSCULAR VOLUME 95.2 fl (81.0-99.0); MONOCYTES # (AUTO) 1.2 K/uL (0.4-2.0); MONOCYTES % (AUTO) 9.2 (0-10); NEUTROPHILS # (AUTO) 11.2 K/ul (2.0-6.9); NEUTROPHILS % (AUTO) 84.7; PLATELET COUNT 222 10^3/uL (140-440); RED BLOOD COUNT 3.96 10^6/ul (4.20-5.40); WHITE BLOOD COUNT 13.21 K/ul (4.6-10.2)
[2016-12-26 07:23] LABS: ALBUMIN 3.3 g/dL (3.4-5.0); ALBUMIN/GLOBULIN RATIO 0.85; ANION GAP 12.6; BILIRUBIN,TOTAL 0.74 mg/dL (0.00-1.20); BUN/CREATININE RATIO 26.92; CREATININE 0.78 mg/dL (0.60-1.30); POTASSIUM 3.6 mmol/L (3.5-5.10); TOTAL PROTEIN 7.2 g/dL (5.8-8.1)
[2016-12-26] MEDS: COLACE PO SCH (09:22)
[2016-12-26] MEDS: LANOXIN PO SCH (09:22)
[2016-12-26] MEDS: ASPIRIN CHEWABLE PO SCH (09:22)
[2016-12-26] MEDS: ROCEPHIN IM SCH (09:24)
[2016-12-26] MEDS: LIDOCAINE 1 % AMP 5 ML (SUTURES) IM SCH (09:24)
[2016-12-26] MEDS: NYSTATIN ORAL SUSP PO SCH ×4 (09:25→20:15)
[2016-12-26] MEDS: SEROQUEL PO SCH ×2 (09:26→20:15)
[2016-12-26] MEDS ORDERED: ZYPREXA PO SCH (09:30)
[2016-12-26] MEDS: ARICEPT PO SCH (20:15)
[2016-12-27] MEDS: TYLENOL PO PRN ×2 (00:12→19:54)
[2016-12-27] MEDS: SODIUM CHLORIDE 1,000 ML IV SCH (02:29)
[2016-12-27] MEDS: NYSTATIN ORAL SUSP PO SCH ×3 (05:36→16:10)
[2016-12-27 07:12] LABS: BASOPHILS # (AUTO) 0.1 K/uL (0-0.2); BASOPHILS % (AUTO) 0.8 % (0.0-3.0); EOSINOPHILS # (AUTO) 0.2 K/ul (0.0-0.7); EOSINOPHILS % (AUTO) 1.5 % (0.0-7.0); HEMATOCRIT 36.1 % (37.0-47.0); HEMOGLOBIN 11.8 g/dl (12.0-16.0); IMMATURE GRANULOCYTE % (AUTO) 0.5 % (0.0-5.0); LYMPHOCYTES # (AUTO) 0.8 K/uL (0.60-3.4); LYMPHOCYTES % (AUTO) 7.2 (10.0-50.0); MEAN CORPUSCULAR HEMOGLOBIN 31.1 pg (27.0-31.0); MEAN CORPUSCULAR HGB CONC 32.7 (31.8-35.4); MEAN CORPUSCULAR VOLUME 95.3 fl (81.0-99.0); MONOCYTES # (AUTO) 1.1 K/uL (0.4-2.0); MONOCYTES % (AUTO) 9.3 (0-10); NEUTROPHILS # (AUTO) 9.4 K/ul (2.0-6.9); NEUTROPHILS % (AUTO) 80.7; PLATELET COUNT 193 10^3/uL (140-440); RED BLOOD COUNT 3.79 10^6/ul (4.20-5.40); WHITE BLOOD COUNT 11.66 K/ul (4.6-10.2)
[2016-12-27 07:33] LABS: ALBUMIN 2.9 g/dL (3.4-5.0); ALBUMIN/GLOBULIN RATIO 0.81; ANION GAP 10.3; BILIRUBIN,TOTAL 0.49 mg/dL (0.00-1.20); BUN/CREATININE RATIO 30.37; CALCIUM 8.5 mg/dL (8.2-10.2); CREATININE 0.79 mg/dL (0.60-1.30); POTASSIUM 3.3 mmol/L (3.5-5.10); TOTAL PROTEIN 6.5 g/dL (5.8-8.1)
[2016-12-27] MEDS ORDERED: ROCEPHIN IV SCH (09:00)
[2016-12-27] MEDS: LANOXIN PO SCH (09:36)
[2016-12-27] MEDS: SEROQUEL PO SCH ×2 (09:37→20:00)
[2016-12-27] MEDS: COLACE PO SCH (09:37)
[2016-12-27] MEDS: ASPIRIN CHEWABLE PO SCH (09:37)
[2016-12-27] MEDS: ROCEPHIN 1 GM in SODIUM CHLORIDE 50 ML IV SCH (09:38)
[2016-12-27] MEDS: ARICEPT PO SCH (20:00)
[2016-12-28] MEDS: NYSTATIN ORAL SUSP PO SCH ×5 (02:49→20:10)
[2016-12-28] MEDS: SODIUM CHLORIDE 1,000 ML IV SCH (02:49)
[2016-12-28 05:18] LABS: BASOPHILS # (AUTO) 0.1 K/uL (0-0.2); BASOPHILS % (AUTO) 0.4 % (0.0-3.0); EOSINOPHILS # (AUTO) 0.1 K/ul (0.0-0.7); EOSINOPHILS % (AUTO) 0.6 % (0.0-7.0); HEMATOCRIT 34.4 % (37.0-47.0); HEMOGLOBIN 11.3 g/dl (12.0-16.0); IMMATURE GRANULOCYTE % (AUTO) 0.5 % (0.0-5.0); LYMPHOCYTES # (AUTO) 0.5 K/uL (0.60-3.4); LYMPHOCYTES % (AUTO) 3.8 (10.0-50.0); MEAN CORPUSCULAR HEMOGLOBIN 31.1 pg (27.0-31.0); MEAN CORPUSCULAR HGB CONC 32.8 (31.8-35.4); MEAN CORPUSCULAR VOLUME 94.8 fl (81.0-99.0); MONOCYTES # (AUTO) 1.1 K/uL (0.4-2.0); MONOCYTES % (AUTO) 8.6 (0-10); NEUTROPHILS # (AUTO) 11.3 K/ul (2.0-6.9); NEUTROPHILS % (AUTO) 86.1; PLATELET COUNT 205 10^3/uL (140-440); RED BLOOD COUNT 3.63 10^6/ul (4.20-5.40); WHITE BLOOD COUNT 13.17 K/ul (4.6-10.2)
[2016-12-28 05:35] LABS: ALANINE AMINOTRANSFERASE 23 U/L (12-78); ALBUMIN 2.7 g/dL (3.4-5.0); ALBUMIN/GLOBULIN RATIO 0.79; ALKALINE PHOSPHATASE 79 U/L (53-141); ASPARTATE AMINO TRANSFERASE 23 U/L (15-37); BLOOD UREA NITROGEN 16 mg/dL (7-18); BUN/CREATININE RATIO 21.62; CALCIUM 8.2 mg/dL (8.2-10.2); CARBON DIOXIDE 25 mmol/L (23-31); CHLORIDE 106 mmol/L (98-107); CREATININE 0.74 mg/dL (0.60-1.30); GLUCOSE 109 mg/dL (82-115); SODIUM 138 mmol/L (136-145); TOTAL PROTEIN 6.1 g/dL (5.8-8.1)
[2016-12-28 05:45] LABS: BILIRUBIN,TOTAL < 0.50 mg/dL (0.00-1.20)
[2016-12-28] MEDS ORDERED: POTASSIUM CHL 10% ORAL SOL PO STA (08:52)
[2016-12-28] MEDS ORDERED: POTASSIUM CHLORIDE PREMIX RUN 20 MEQ in PREMIX 100 ML WATER 1 BAG IV STA (08:53)
[2016-12-28] MEDS: ASPIRIN CHEWABLE PO SCH (09:49)
[2016-12-28] MEDS: ROCEPHIN 1 GM in SODIUM CHLORIDE 50 ML IV SCH (09:49)
[2016-12-28] MEDS: LANOXIN PO SCH (09:49)
[2016-12-28] MEDS: COLACE PO SCH (09:51)
[2016-12-28] MEDS: SEROQUEL PO SCH ×2 (09:54→20:09)
--- NOTE | 2016-12-28 10:57 | PCM.PROG ---
Attending Provider: ATTENDING PROVIDER: Dr. SUKHJINDER FORBES DATE OF SERVICE: 12/28/16 SUBJECTIVE: This 89 year old WHITE/ F was hospitalized 12/21/16. The patient states she is feeling better. She has had diarrhea 3 times today per nurse. The patient's mood is a lot better and is more responsive with no aggressive behavior noted. REVIEW OF SYSTEMS: CONSTITUTIONAL: No fever, no chills. ENDOCRINE: No weight loss or weight gain. HEENT: No sinus drainage, no sore throat. CVS: No angina symptoms. No CHF symptoms. No palpitations. No atypical chest pain for CAD. No shortness of breath. RESPIRATORY: No cough, no hemoptysis. GI: No melena. No abdominal pain. No nausea, no vomiting. : No hematuria. No polyuria. SKIN: No rash. No wounds. MUSCULOSKELETAL: No pain. IRON WORKER: No blackout, no dizziness. No headache. No double vision. PSYCHIATRIC: Not anxious; no depression. No suicidal thoughts. No homicidal thoughts. PHYSICAL EXAMINATION: GENERAL: Cachetic lady lying in bed in no distress. VITAL SIGNS: Temperature 98.1 F, Pulse 71, Respiratory Rate 20, BP 143/75, Pulse Ox 96% HEENT: Normocephalic, atraumatic. Mucosa is dry, pallor positive. NECK: No JVP, no carotid bruit. No lymphadenopathy. CARDIAC: S1, S2, no S3. No murmur, gallop or regurgitation. LUNGS: Clear to auscultation. ABDOMEN: Soft, non-tender. Bowel sounds active. No rigidity, guarding or CVA tenderness. EXTREMITIES: No clubbing, cyanosis or edema. NEUROLOGIC: Awake and more alert. LYMPHATIC: No palpable lymph nodes SKIN: Not dry. Intact. MUSCULOSKELETAL: No joint swelling. LAB REVIEW: 12/28/16 05:00 12/28/16 05:00 12/28/16 05:00: WBC 13.17 H, RBC 3.63 L, Hgb 11.3 L, Hct 34.4 L, MCV 94.8, MCH 31.1 H, MCHC 32.8, RDW Coeff of Zack 14.0, Plt Count 205, Immature Gran % (Auto) 0.5, Neut % (Auto) 86.1, Lymph % (Auto) 3.8 L, [place] % (Auto) 8.6, Eos % (Auto) 0.6, Baso % (Auto) 0.4, Immature Gran # (Auto) 0.1, Neut # 11.3 H, Lymph # 0.5 L , [place] # 1.1, Eos # 0.1, Baso # 0.1, Sodium 138, Potassium 3.0 L, Chloride 106, Carbon Dioxide 25, Anion Gap 10.0, BUN 16, Creatinine 0.74, Estimated GFR (MDRD ) 74.00, BUN/Creatinine Ratio 21.62, Glucose 109, Calcium 8.2, Total Bilirubin < 0.50, AST 23, ALT 23, Alkaline Phosphatase 79, Total Protein 6.1, Albumin 2.7 L, Globulin 3.4, Albumin/Globulin Ratio 0.79 ASSESSMENT: 1. Change in mental status, acute psychosis 2. UTI with gram negative rods 3. Alzheimer's dementia 4. Hypokalemia 5. Anemia 6. Permanent pacemaker 7. History of atrial fibrillation per family 8. History of blood clots 9. Permanent pacemaker 10. Hypertension PLAN: 1. Continue same treatment 2. The case technician is working on placing patient in Alzheimer's dementia unit with possible discharge tomorrow. 3. Potassium 20 mEq IV 4. Potassium 40 mEq p.o. liquid Plan and coordination of the patient's care discussed in the presence of Hatchery Helper and nurse. CONDITION: Stable SCRIBED BY: KALEB BAGLEY Reinsurance Claim Analyst scribed while in presence of service performed by Dr. SUKHJINDER FORBES on 12/28/16 ([id number])
--- NOTE | 2016-12-28 11:04 | PN ---
DATE OF SERVICE: 12/26/16 SUBJECTIVE: The patient is admitted with urinary tract infection, change in mental status, and Alzheimer's dementia. The patient is on IV fluids, IV antibiotics and feeling a lot better per nurse Renay today. She is not hitting the nurses. REVIEW OF SYSTEMS: CONSTITUTIONAL: No fever, no chills. HEENT: Normal. ENDOCRINE: No weight gain, no weight loss. CVS: No angina symptoms. No CHF symptoms. No palpitations. No atypical chest pain for CAD. No shortness of breath. No PND, no orthopnea. RESPIRATORY: No cough, no hemoptysis. GI: No nausea, no vomiting. No abdominal pain. : No hematuria. No polyuria. MUSCULOSKELETAL:. No joint swelling. PSYCHIATRIC: Not anxious. No depression. No suicidal thoughts. No homicidal thoughts. SKIN: Intact. No rash. PHYSICAL EXAMINATION: V/S: BP 116/64, respiratory rate 18, heart rate 84, temperature 97.7. HEENT: Normocephalic, atraumatic. Mucosa dry. NECK: Supple. No JVD, no carotid bruit. No lymphadenopathy. LUNGS: Bilateral entry is decreased. Clear to auscultation. No rales or rhonchi. HEART: S1, S2 normal. No S3. No murmur, gallop or regurgitation. ABDOMEN: Soft, nontender. Bowel sounds active. No rigidity. No rebound or guarding. No CVA tenderness. EXTREMITIES: No clubbing, cyanosis or pedal edema. MUSCULOSKELETAL: No joint swelling. NEUROLOGIC: Awake, alert but not oriented to time, place or person. No focal deficit. LYMPHATIC: No lymph nodes palpable. SKIN: Intact. ASSESSMENT: 1. ENCEPHALOPATHY/CHANGE IN MENTAL STATUS WITH PSYCHOSIS 2. UTI, ORGANISM E. COLI 3. ALZHEIMER'S DEMENTIA 4. PERMANENT PACEMAKER PLAN: 1. Continue Digoxin p.o. daily 2. Rocephin 1 gm IM 3. Docusate p.o. daily 4. Aricept 10 mg p.o. bedtime 5. Zyprexa 2.5 mg IM daily 6. I will follow with the patient in daily rounds TIME SPENT: More than 30 minutes MTDD
--- NOTE | 2016-12-28 11:12 | PN ---
DATE OF SERVICE: 12/27/16 SUBJECTIVE: The patient is very calm, comfortable, talking nicely. She did not know where she was but she did understand that she has been sick. Otherwise, no new complaints. REVIEW OF SYSTEMS: CONSTITUTIONAL: No fever, no chills. HEENT: Normal. ENDOCRINE: No weight gain, no weight loss. CVS: No angina symptoms. No CHF symptoms. No palpitations. No atypical chest pain for CAD. No shortness of breath. No PND, no orthopnea. RESPIRATORY: No cough, no hemoptysis. GI: No nausea, no vomiting. No abdominal pain. : No hematuria. No polyuria. MUSCULOSKELETAL:. No joint swelling. PSYCHIATRIC: Not anxious. No depression. No suicidal thoughts. No homicidal thoughts. SKIN: Intact. No rash. PHYSICAL EXAMINATION: V/S: BP 144/72, respiratory rate 18, heart rate 83, temperature 98.8. HEENT: Normocephalic, atraumatic. Mucosa dry, pallor positive. No icterus. NECK: Supple. No JVD, no carotid bruit. No lymphadenopathy. LUNGS: Decreased entry. Clear to auscultation. HEART: S1, S2 normal. No S3. No murmur. ABDOMEN: Soft, nontender. Bowel sounds active. No rigidity. No rebound or guarding. No CVA tenderness. EXTREMITIES: No clubbing, cyanosis or pedal edema. MUSCULOSKELETAL: No joint swelling. NEUROLOGIC: Awake, alert. Not oriented to time, place or person. LYMPHATIC: No lymph nodes palpable. SKIN: Intact. LABS: White count 13.31, hemoglobin 12.3, hematocrit 37.2, platelet count 222. Sodium 142, potassium 3.6, chloride 107, bicarb 26, BUN 21, creatinine 0.78. ASSESSMENT: 1. STATUS POST ACUTE PSYCHOSIS; TEMPORARILY THE PATIENT WAS GIVEN ZYPREXA BUT HAS BEEN OFF THIS AND IS GETTING SEROQUEL 2. ALZHEIMER'S DEMENTIA 3. URINARY TRACT INFECTION 4. PERMANENT PACEMAKER PLAN: 1. Continue Rocephin IV 2. Aricept at nighttime 3. Seroquel b.i.d. 4. IV fluids at 40 mL/hr 5. I will follow with the patient in daily rounds TIME SPENT: More than 30 minutes MTDD
[2016-12-28] MEDS: ARICEPT PO SCH (20:09)
[2016-12-29 04:40] LABS: BASOPHILS # (AUTO) 0.1 K/uL (0-0.2); BASOPHILS % (AUTO) 0.4 % (0.0-3.0); EOSINOPHILS # (AUTO) 0.2 K/ul (0.0-0.7); EOSINOPHILS % (AUTO) 1.5 % (0.0-7.0); HEMATOCRIT 35.2 % (37.0-47.0); HEMOGLOBIN 11.6 g/dl (12.0-16.0); IMMATURE GRANULOCYTE % (AUTO) 0.5 % (0.0-5.0); LYMPHOCYTES # (AUTO) 0.9 K/uL (0.60-3.4); LYMPHOCYTES % (AUTO) 7.2 (10.0-50.0); MEAN CORPUSCULAR HEMOGLOBIN 31.2 pg (27.0-31.0); MEAN CORPUSCULAR VOLUME 94.6 fl (81.0-99.0); MONOCYTES % (AUTO) 7.8 (0-10); NEUTROPHILS # (AUTO) 10.6 K/ul (2.0-6.9); NEUTROPHILS % (AUTO) 82.6; PLATELET COUNT 225 10^3/uL (140-440); RED BLOOD COUNT 3.72 10^6/ul (4.20-5.40); WHITE BLOOD COUNT 12.76 K/ul (4.6-10.2)
[2016-12-29 05:07] LABS: ALBUMIN 2.7 g/dL (3.4-5.0); ALBUMIN/GLOBULIN RATIO 0.73; ANION GAP 10.6; BILIRUBIN,TOTAL 0.44 mg/dL (0.00-1.20); BUN/CREATININE RATIO 19.48; CALCIUM 8.5 mg/dL (8.2-10.2); CREATININE 0.77 mg/dL (0.60-1.30); POTASSIUM 3.6 mmol/L (3.5-5.10); TOTAL PROTEIN 6.4 g/dL (5.8-8.1)
[2016-12-29] MEDS: NYSTATIN ORAL SUSP PO SCH ×4 (06:18→20:27)
[2016-12-29] MEDS: SODIUM CHLORIDE 1,000 ML IV SCH ×2 (07:34→07:35)
[2016-12-29] MEDS ORDERED: KEFLEX PO SCH (09:00)
[2016-12-29] MEDS: KEFLEX PO SCH ×2 (09:41→20:27)
[2016-12-29] MEDS: ASPIRIN CHEWABLE PO SCH (09:41)
[2016-12-29] MEDS: LANOXIN PO SCH (09:42)
[2016-12-29] MEDS: SEROQUEL PO SCH ×2 (09:43→20:28)
--- NOTE | 2016-12-29 11:20 | PCM.PROG ---
Attending Provider: ATTENDING PROVIDER: Dr. SUKHJINDER FORBES DATE OF SERVICE: 12/29/16 SUBJECTIVE: This 89 year old WHITE/ F was hospitalized 12/21/16. The patient is not very happy this morning. She did sleep well during the night. No diarrhea. No fever, no chills. The correctional counselor/case manager is working on placement of the patient to an Alzheimer's unit. REVIEW OF SYSTEMS: CONSTITUTIONAL: No fever, no chills. ENDOCRINE: No weight loss or weight gain. HEENT: No sinus drainage, no sore throat. CVS: No angina symptoms. No CHF symptoms. No palpitations. No atypical chest pain for CAD. No shortness of breath. RESPIRATORY: No cough, no hemoptysis. GI: No melena. No abdominal pain. No nausea, no vomiting. : No hematuria. No polyuria. SKIN: No rash. No wounds. MUSCULOSKELETAL: No pain. MILITARY PROFESSIONAL: No blackout, no dizziness. No headache. No double vision. PSYCHIATRIC: Anxious; no depression. No suicidal thoughts. No homicidal thoughts. PHYSICAL EXAMINATION: GENERAL: Cachetic appearing lady lying in bed in no distress. VITAL SIGNS: Temperature 96.9 F, Pulse 59, Respiratory Rate 20, BP 162/78, Pulse Ox 96% HEENT: Normocephalic, atraumatic. Mucosa is dry, pallor positive. NECK: No JVP, no carotid bruit. No lymphadenopathy. CARDIAC: S1, S2, no S3. No murmur, gallop or regurgitation. LUNGS: Clear to auscultation. ABDOMEN: Soft, non-tender. Bowel sounds active. No rigidity, guarding or CVA tenderness. EXTREMITIES: No clubbing, cyanosis or edema. NEUROLOGIC: Awake, alert, not oriented to time place or person; she is upset and anxious. LYMPHATIC: No palpable lymph nodes SKIN: Not dry. Intact. MUSCULOSKELETAL: No joint swelling. LAB REVIEW: 12/29/16 03:45 12/29/16 03:45 12/29/16 03:45: WBC 12.76 H, RBC 3.72 L, Hgb 11.6 L, Hct 35.2 L, MCV 94.6, MCH 31.2 H, MCHC 33.0, RDW Coeff of Zack 14.1, Plt Count 225, Immature Gran % (Auto) 0.5, Neut % (Auto) 82.6, Lymph % (Auto) 7.2 L, [place] % (Auto) 7.8, Eos % (Auto) 1.5, Baso % (Auto) 0.4, Immature Gran # (Auto) 0.1, Neut # 10.6 H, Lymph # 0.9, [place] # 1.0, Eos # 0.2, Baso # 0.1, Sodium 139, Potassium 3.6, Chloride 108 H, Carbon Dioxide 24, Anion Gap 10.6, BUN 15, Creatinine 0.77, Estimated GFR (MDRD ) 71.00, BUN/Creatinine Ratio 19.48, Glucose 94, Calcium 8.5, Total Bilirubin 0.44, AST 20, ALT 24, Alkaline Phosphatase 83, Total Protein 6.4, Albumin 2.7 L , Globulin 3.7, Albumin/Globulin Ratio 0.73 ASSESSMENT: 1. UTI, organism E. coli, non ESBL 2. Change in mental status, acute psychosis 3. UTI with gram negative rods 4. Alzheimer's dementia 5. Hypokalemia 6. Anemia 7. Permanent pacemaker 8. History of atrial fibrillation per family 9. History of blood clots 10. Permanent pacemaker 11. Hypertension PLAN: 1. Increase Seroquel to 50 mg b.i.d. 2. Stop Rocephin 3. Add Keflex 500 mg b.i.d. Plan and coordination of the patient's care discussed in the presence of Twister Doffer and nurse. CONDITION: Stable SCRIBED BY: KALEB BAGLEY Maintenance Painter Apprentice scribed while in presence of service performed by Dr. SUKHJINDER FORBES on 12/29/16 ([id number])
[2016-12-29] MEDS: ARICEPT PO SCH (20:27)
[2016-12-30 04:47] LABS: BASOPHILS # (AUTO) 0.1 K/uL (0-0.2); BASOPHILS % (AUTO) 0.5 % (0.0-3.0); EOSINOPHILS # (AUTO) 0.2 K/ul (0.0-0.7); EOSINOPHILS % (AUTO) 1.9 % (0.0-7.0); HEMATOCRIT 34.4 % (37.0-47.0); HEMOGLOBIN 11.6 g/dl (12.0-16.0); IMMATURE GRANULOCYTE % (AUTO) 0.6 % (0.0-5.0); LYMPHOCYTES # (AUTO) 0.8 K/uL (0.60-3.4); LYMPHOCYTES % (AUTO) 6.6 (10.0-50.0); MEAN CORPUSCULAR HEMOGLOBIN 31.1 pg (27.0-31.0); MEAN CORPUSCULAR HGB CONC 33.7 (31.8-35.4); MEAN CORPUSCULAR VOLUME 92.2 fl (81.0-99.0); MONOCYTES # (AUTO) 1.1 K/uL (0.4-2.0); MONOCYTES % (AUTO) 8.7 (0-10); NEUTROPHILS # (AUTO) 10.1 K/ul (2.0-6.9); NEUTROPHILS % (AUTO) 81.7; PLATELET COUNT 222 10^3/uL (140-440); RED BLOOD COUNT 3.73 10^6/ul (4.20-5.40)
[2016-12-30 05:06] LABS: ALBUMIN 2.7 g/dL (3.4-5.0); ALBUMIN/GLOBULIN RATIO 0.75; ANION GAP 10.9; BILIRUBIN,TOTAL 0.45 mg/dL (0.00-1.20); BUN/CREATININE RATIO 17.14; CALCIUM 8.4 mg/dL (8.2-10.2); CREATININE 0.7 mg/dL (0.60-1.30); POTASSIUM 2.9 mmol/L (3.5-5.10); TOTAL PROTEIN 6.3 g/dL (5.8-8.1)
[2016-12-30] MEDS: NYSTATIN ORAL SUSP PO SCH ×4 (05:39→20:01)
[2016-12-30] MEDS: ASPIRIN CHEWABLE PO SCH (08:55)
[2016-12-30] MEDS: SEROQUEL PO SCH ×2 (09:03→20:02)
[2016-12-30] MEDS: LANOXIN PO SCH (09:03)
[2016-12-30] MEDS: KEFLEX PO SCH ×2 (09:03→20:02)
[2016-12-30] MEDS ORDERED: K-DUR PO STA (10:09)
[2016-12-30] MEDS ORDERED: K-DUR PO SCH (14:00)
[2016-12-30] MEDS: ARICEPT PO SCH (20:02)
[2016-12-30] MEDS: TYLENOL PO PRN (20:03)
[2016-12-31 06:06] LABS: BASOPHILS # (AUTO) 0.1 K/uL (0-0.2); BASOPHILS % (AUTO) 0.4 % (0.0-3.0); EOSINOPHILS # (AUTO) 0.1 K/ul (0.0-0.7); EOSINOPHILS % (AUTO) 0.9 % (0.0-7.0); HEMATOCRIT 32.5 % (37.0-47.0); HEMOGLOBIN 10.9 g/dl (12.0-16.0); IMMATURE GRANULOCYTE % (AUTO) 0.9 % (0.0-5.0); LYMPHOCYTES # (AUTO) 0.7 K/uL (0.60-3.4); LYMPHOCYTES % (AUTO) 5.3 (10.0-50.0); MEAN CORPUSCULAR HEMOGLOBIN 31.2 pg (27.0-31.0); MEAN CORPUSCULAR HGB CONC 33.5 (31.8-35.4); MEAN CORPUSCULAR VOLUME 93.1 fl (81.0-99.0); MONOCYTES # (AUTO) 1.2 K/uL (0.4-2.0); MONOCYTES % (AUTO) 8.3 (0-10); NEUTROPHILS # (AUTO) 11.7 K/ul (2.0-6.9); NEUTROPHILS % (AUTO) 84.2; PLATELET COUNT 253 10^3/uL (140-440); RED BLOOD COUNT 3.49 10^6/ul (4.20-5.40); WHITE BLOOD COUNT 13.93 K/ul (4.6-10.2)
[2016-12-31] MEDS: NYSTATIN ORAL SUSP PO SCH ×2 (06:25→10:49)
[2016-12-31 06:27] LABS: ALBUMIN 2.5 g/dL (3.4-5.0); ALBUMIN/GLOBULIN RATIO 0.74; ANION GAP 9.8; BILIRUBIN,TOTAL 0.13 mg/dL (0.00-1.20); BUN/CREATININE RATIO 13.04; CALCIUM 8.3 mg/dL (8.2-10.2); CREATININE 0.69 mg/dL (0.60-1.30); POTASSIUM 3.8 mmol/L (3.5-5.10); TOTAL PROTEIN 5.9 g/dL (5.8-8.1)
[2016-12-31] MEDS: ASPIRIN CHEWABLE PO SCH (08:55)
[2016-12-31] MEDS: SEROQUEL PO SCH (09:15)
[2016-12-31] MEDS: KEFLEX PO SCH (09:15)
[2016-12-31] MEDS: LANOXIN PO SCH (09:15)
--- NOTE | 2016-12-31 09:40 | PCM.PROG ---
Attending Provider: ATTENDING PROVIDER: Dr. SUKHJINDER FORBES DATE OF SERVICE: 12/31/16 SUBJECTIVE: This 89 year old WHITE/ F was hospitalized 12/21/16. The patient is doing better and is ready for discharge to [facility] today. The patient is calm and quiet this morning. She is still having 1 to 2 episodes of diarrhea. Potassium is normal, still has some confusion episodes but more stable than before. REVIEW OF SYSTEMS: CONSTITUTIONAL: No fever, no chills. ENDOCRINE: No weight loss or weight gain. HEENT: No sinus drainage, no sore throat. CVS: No angina symptoms. No CHF symptoms. No palpitations. No atypical chest pain for CAD. No shortness of breath. RESPIRATORY: No cough, no hemoptysis. GI: Diarrhea. No melena. No abdominal pain. No nausea, no vomiting. : No hematuria. No polyuria. SKIN: No rash. No wounds. MUSCULOSKELETAL: No pain. ENVIRONMENTAL HEALTH AIDE: No blackout, no dizziness. No headache. No double vision. PSYCHIATRIC: Not anxious; no depression. No suicidal thoughts. No homicidal thoughts. PHYSICAL EXAMINATION: GENERAL: Cachetic appearing female lying in bed in no distress. VITAL SIGNS: Temperature 97.7 F, Pulse 74, Respiratory Rate 16, BP 147/82, Pulse Ox 97% HEENT: Normocephalic, atraumatic. Mucosa is dry, pallor positive. NECK: No JVP, no carotid bruit. No lymphadenopathy. CARDIAC: S1, S2, no S3. No murmur, gallop or regurgitation. LUNGS: Clear to auscultation. ABDOMEN: Soft, non-tender. Bowel sounds active. No rigidity, guarding or CVA tenderness. EXTREMITIES: No clubbing, cyanosis or edema. NEUROLOGIC: Awake, alert, not oriented to person, place or time. LYMPHATIC: No palpable lymph nodes SKIN: Not dry. Intact. MUSCULOSKELETAL: No joint swelling. LAB REVIEW: 12/31/16 06:00 12/31/16 06:00 12/31/16 06:00: WBC 13.93 H, RBC 3.49 L, Hgb 10.9 L, Hct 32.5 L, MCV 93.1, MCH 31.2 H, MCHC 33.5, RDW Coeff of Zack 14.0, Plt Count 253, Immature Gran % (Auto) 0.9, Neut % (Auto) 84.2, Lymph % (Auto) 5.3 L, [place] % (Auto) 8.3, Eos % (Auto) 0.9, Baso % (Auto) 0.4, Immature Gran # (Auto) 0.1, Neut # 11.7 H, Lymph # 0.7, [place] # 1.2, Eos # 0.1, Baso # 0.1, Sodium 138, Potassium 3.8, Chloride 106, Carbon Dioxide 26, Anion Gap 9.8, BUN 9, Creatinine 0.69, Estimated GFR (MDRD) 80.00, BUN/Creatinine Ratio 13.04, Glucose 102, Calcium 8.3, Total Bilirubin 0.13, AST 14 L, ALT 18, Alkaline Phosphatase 79, Total Protein 5.9, Albumin 2.5 L, Globulin 3.4, Albumin/Globulin Ratio 0.74 12/30/16 20:00: Potassium 4.4 ASSESSMENT: 1. UTI, organism E. coli, non ESBL 2. Change in mental status, acute psychosis 3. UTI with gram negative rods 4. Alzheimer's dementia 5. Hypokalemia 6. Anemia 7. Permanent pacemaker 8. History of atrial fibrillation per family 9. History of blood clots 10. Permanent pacemaker 11. Hypertension PLAN: 1. Digoxin level 2. Colace p.r.n. 3. Continue Aricept 4. CBC and CMP in one week 5. Discharge to [place] and will followup with Dr. Scott at [facility] 6. Continue aspirin and Lanoxin 7. Continue Keflex for 3 more days 8. Oral potassium for one week then do CMP CONDITION: Stable SCRIBED BY: KALEB BAGLEY, Inspector [employer] scribed while in presence of service performed by Dr. SUKHJINDER FORBES on 12/31/16 ([id number])
[2016-12-31 11:24] VITALS: BP 100/56; TEMP 97.6
--- NOTE | 2016-12-31 13:28 | HP ---
DATE OF SERVICE: 12/21/16 CHIEF COMPLAINT/HISTORY OF PRESENT ILLNESS: This 89-year-old White/ female was hospitalized 12/21/16. The patient presented to ER last night and was seen by Dr. Serra for confusion, change in mental status and wandering on the streets. The police brought the patient in. Apparently, the patient was seen the day before for UTI and was put on Bactrim. The patient was confused to person, place and time. CT scan of the head did not show any stroke. At that time, the patient was admitted for IV antibiotics, IV fluids, change in mental status most likely from worsening Alzheimer's dementia and encephalopathy. REVIEW OF SYSTEMS: CONSTITUTIONAL: No fever, no chills. HEENT: Normal. ENDOCRINE: No weight gain; no weight loss. CVS: No chest pain. No PND, no orthopnea. No shortness of breath. No PND, no orthopnea. RESPIRATORY: No cough, no congestion. No hemoptysis. GI: No nausea, no vomiting. No abdominal pain. No melena. : No hematuria. No polyuria. MUSCULOSKELETAL: No joint swelling. PSYCHIATRIC: Not anxious. No depression. No suicidal thoughts. No homicidal thoughts. SKIN: Intact. PAST MEDICAL HISTORY: Cardiac disease with permanent pacemaker placed by Dr. Jules and he follows Irregular heart rate History of DVT - the patient was on blood thinners but she had GI bleed complications PAST SURGICAL HISTORY: Cataract surgery Permanent pacemaker placement Appendectomy Right shoulder rotator cuff surgery PERSONAL HISTORY: The patient does not smoke or drink, independent of ADLs. FAMILY HISTORY: Significant for heart problems. MEDICATIONS: (Home) Aspirin Digoxin Recently given Bactrim ALLERGIES: NKDA PHYSICAL EXAMINATION: V/S: Temperature 96.9, pulse 63, respiratory rate 24, BP 162/81, pulse ox 94%. HEENT: Atraumatic, normocephalic. No scleral icterus. Pallor positive. Mucosa dry. NECK: Supple. No JVD, no bruit. No lymphadenopathy. No thyromegaly. HEART: S1, S2 normal. No murmur. No cyanosis or clubbing. No ascites. LUNGS: Decreased entry. Clear to auscultation. No rales or rhonchi. ABDOMEN: Soft, nontender. Bowel sounds are active. No CVA tenderness. No rigidity or guarding. EXTREMITIES: No cyanosis, clubbing or pedal edema. MUSCULOSKELETAL: Normal joints, no swelling. NEUROLOGIC: The patient is awake and alert; not oriented to time, place or person. SKIN: Intact. LYMPHATIC: No lymph nodes palpable. LABS: 12/22/16 WBC 7.03, RBC 3.83, hemoglobin 11.9, hematocrit 36.4, platelet count 213. Potassium 3.2, chloride 105, carbon dioxide 27, BUN 14, creatinine 0.78, glucose 90, calcium 8.6, alk phos 84. ASSESSMENT: 1. CHANGE IN MENTAL STATUS, ENCEPHALOPATHY 2. UTI 3. ALZHEIMER'S DEMENTIA 4. HYPOKALEMIA 5. ANEMIA 6. PERMANENT PACEMAKER 7. HISTORY OF ATRIAL FIBRILLATION PER FAMILY 8. HISTORY OF BLOOD CLOTS PLAN: 1. Admit for IV antibiotic Rocephin 2. IV fluids 2. I & O's 3. V/S q.4hr 4. Check Digoxin level 5. Aspirin 81 mg p.o. daily 6. Ativan 1 mg for anxiety 7. Fall precautions MTDD
--- NOTE | 2016-12-31 15:22 | PN ---
DATE OF SERVICE: 12/30/16 SUBJECTIVE: The patient was admitted with change in mental status, acute psychosis and urinary tract infection and dehydration. The patient is gradually improving. Psychosis has resolved. Zyprexa was given for the psychosis temporarily. With Seroquel the patient is more awake, alert and responding good. REVIEW OF SYSTEMS: CONSTITUTIONAL: No fever, no chills. HEENT: Normal. ENDOCRINE: No weight gain, no weight loss. CVS: No angina symptoms. No CHF symptoms. No palpitations. No atypical chest pain for CAD. No shortness of breath. No PND, no orthopnea. RESPIRATORY: No cough, no hemoptysis. GI: No nausea, no vomiting. No abdominal pain. : No hematuria. No polyuria. MUSCULOSKELETAL:. No joint swelling. PSYCHIATRIC: Not anxious. No depression. No suicidal thoughts. No homicidal thoughts. SKIN: Intact. No rash. PHYSICAL EXAMINATION: V/S: Blood pressure 104/60, respiratory rate 16, heart rate 88, temperature 98.0. HEENT: Normocephalic, atraumatic. Mucosa dry. Pallor positive. No icterus. NECK: Supple. No JVD, no carotid bruit. No lymphadenopathy. LUNGS: Clear to auscultation. No rales or rhonchi. HEART: S1, S2 normal. No S3. No murmur, gallop or regurgitation. ABDOMEN: Soft, nontender. Bowel sounds active. No rigidity. No rebound or guarding. No CVA tenderness. EXTREMITIES: No clubbing, cyanosis or pedal edema. MUSCULOSKELETAL: No joint swelling. NEUROLOGIC: Awake, alert, not completely oriented to time, place and person. No focal deficit. LYMPHATIC: No lymph nodes palpable. SKIN: Intact. LABS: White count is 12.3, hemoglobin 11.6, hematocrit 34.4, platelet count 222 , sodium 138, potassium 2.9, chloride 107, bicarb 23, BUN 12, creatinine 0.70. ASSESSMENT: 1. STATUS POST CHANGE IN MENTAL STATUS SECONDARY TO PSYCHOSIS AND DELIRIUM 2. ALZHEIMER'S DEMENTIA 3. URINARY TRACT INFECTION, E. COLI 4. HISTORY OF PERMANENT PACEMAKER ON DIGOXIN PLAN: 1. Replace the potassium 40 mEq two times. 2. Continue the Seroquel. 3. Patient is offered evaluation and placement in a facility for Alzheimer's dementia, delirium and psychosis. TIME SPENT: More than 30 minutes MTDD
--- NOTE | 2017-01-05 13:27 | DS ---
DATE OF SERVICE: 12/31/16 FINAL DIAGNOSIS: 1. UTI, ORGANISM E. COLI 2. STATUS POST DELIRIUM AND ACUTE PSYCHOSIS, WHICH ARE RESOLVED 3. ALZHEIMER'S DEMENTIA 4. DEHYDRATION 5. HYPOKALEMIA WHICH IS BETTER 6. ANEMIA WHICH HAS BEEN STABLE 7. HISTORY OF PERMANENT PACEMAKER AND IS BEING FOLLOWED BY DR. MONTES AND DR. MONTES CHECKS IT. 8. HISTORY OF ATRIAL FIBRILLATION FOR FAMILY HISTORY OF BLOOD CLOTS AND GI BLEED. 9. HYPERTENSION DISCHARGE INSTRUCTIONS: 1. [facility]charge to [facility] under the care of Dr. Scott. 2. PT/OT evaluate and treat. 3. CMP in one week; other labs per Dr. Scott. 4. V/S b.i.d. times one week then monthly. MEDICATIONS AT DISCHARGE: 1. Aspirin 81 mg p.o. daily 2. Digoxin 125 mcg p.o. daily NEW PRESCRIPTIONS: 1. Colace 2. Aricept 3. Potassium 4. Seroquel 5. Keflex DIET INSTRUCTIONS: Regular diet with Boost Shake each meal; tire retreader to evaluate. ACTIVITY: Activity as tolerated. The patient is a fall risk. SMOKING: N/A DISEASE SPECIFIC EDUCATION: Alzheimer's dementia Psychosis Delirium Urinary tract infection Dehydration All the above discussed with the family multiple times. HOSPITAL COURSE: This is an 89-year-old female who was initially seen by Dr. Austin in the Emergency Room, was put on Bactrim DS for urinary tract infection when she was discharged home. Within two days, the patient was found by the police wandering the streets. At that time, they brought the patient to the emergency room with acute confusional state and found to be dehydrated. ABG was done which was showed pH 7.433, pc02 38.5, p02 73. BUN and creatinine were normal. CT of the head was negative for any stroke. CT of the chest was done. Minor left-sided scarring or atelectasis was seen. CT of the abdomen and pelvis was done. Diverticulosis, subacute partially healed fracture of the left ninth rib. The patient was admitted to the hospital, started on IV Rocephin and Ativan was given p.r.n. Zyprexa was given. The patient had a confusion episode, where she pulled out the IV line. Seroquel was continued 25 mg p.o. b.i.d. The Zyprexa 2.5 mg IM was given for acute psychosis and change in mental status. In two days it did show in fact the patient was more calm and cooperative and with a respiratory rate of 25 b.i.d., more cooperative. Again, the IV line was put in, started on IV fluids and Rocephin IV. The patient has 4 to 5 daughters and are having a disagreement where to place the patient. The patient still was up and down with her mood but gradually Zyprexa was cut off and Seroquel was increased to 50 mg p.o. b.i.d. With the given dose, the patient was more awake and alert but was still disoriented. Aricept was also started. Discussed in detail with the family about the Alzheimer's dementia and risk of the psychosis with any infection or the dehydration. They all verbalized understanding. Finally, the patient was placed in the [facility] under the care of Dr. Scott. The patient is clinically stable at time of discharge. TIME SPENT: More than 50 minutes today. RICHARD
== END 2016-12-31 13:35 | DRG 689 ==
LOC: ED 22:30 → SCU 23:59
PROVIDERS: ADMIT Emergency Medicine; ATTEND Emergency Medicine
DX: N39.0 Urinary tract infection, site not specified (principal); G93.40 Encephalopathy, unspecified; F05 Delirium due to known physiological condition; F23 Brief psychotic disorder; G30.1 Alzheimer's disease with late onset; R41.82 Altered mental status, unspecified; R50.9 Fever, unspecified; F02.80 Dementia in other diseases classified elsewhere, unspecified severity, without behavioral disturbance, psychotic disturbance, mood disturbance, and anxiety; B96.20 Unspecified Escherichia coli [E. coli] as the cause of diseases classified elsewhere; I10 Essential (primary) hypertension; K57.90 Diverticulosis of intestine, part unspecified, without perforation or abscess without bleeding; E87.6 Hypokalemia; E86.0 Dehydration; D64.9 Anemia, unspecified; Z87.891 Personal history of nicotine dependence; Z79.899 Other long term (current) drug therapy; Z95.0 Presence of cardiac pacemaker; Z86.718 Personal history of other venous thrombosis and embolism
CPT/HCPCS: 36415; 80053; 80162; 81001; 82140; 82550; 82803; 83605; 84132; 84145; 84484; 85025; 85379; 87040; 87086; 87186; 93005; 93010; 96360; 96375; 97802; 99223; 99233; 99234; 99239; 99283; 99284

== ENCOUNTER 2016-12-29 16:46 | Emergency (ER) | payer OTHER ==
[2016-12-29 16:53] VITALS: BP 169/91; TEMP 98; BMI 12.1
--- NOTE | 2016-12-29 17:57 | CT ---
EXAM: CT brain without contrast HISTORY: Fall with head injury and pain TECHNIQUE: CT of the brain without intravenous contrast FINDINGS: There is no acute hemorrhage midline shift or mass effect. No hydrocephalus or abnormal extra-axial fluid collection. Generalized involutional atrophy, severe. Chronic microvascular gao ges of the white matter tracts, moderate. No acute large vessel territorial infarct is seen. The b rogerio cranium appears normal. Paranasal sinuses are clear. Partial left mastoid effusion. The middle ears are clear. Soft tissues without significant abnormality. IMPRESSION: 1. Involutional atrophy and chronic microvascular changes of the white matter tracts. No acute int racranial abnormality is seen. 2. Partial left mastoid effusion
--- NOTE | 2016-12-29 18:00 | DI ---
Exam: Right shoulder three-view History: Fall with shoulder tenderness Findings / impression: No acute bony or articular abnormality of the right shoulder. Mild acromioc lavicular osteoarthritic change. The bones are demineralized.
--- NOTE | 2016-12-29 18:00 | CT ---
EXAM: CT Pelvis without contrast. HISTORY: Initial presentation for pelvic trauma due to a fall. COMPARISON: CT 12/21/2016. TECHNIQUE: Multiple axial images of the pelvis were obtained without intravenous contrast. Images were reformatted in the coronal and sagittal plane. FINDINGS: Please note that evaluation of the pelvic soft tissue structures is limited due to lack o f intravenous contrast. The bones are demineralized. No fracture or dislocation identified. Degenerative changes present i n the lower lumbar spine and sacroiliac joints as well as the pubic symphysis. Atherosclerotic calcifications are present. No localized soft tissue abnormality identified. Quest ion mild diffuse colitis versus incomplete distension. Colonic diverticulosis noted. IMPRESSION: No fracture or dislocation.
--- NOTE | 2016-12-29 18:03 | CT ---
EXAM: CT scan cervical spine HISTORY: Fall COMPARISON: None. FINDINGS: Contiguous axial images obtained through the vocal spine utilizing 2-mm collimation. Sag ittal and coronal reconstructions were imaged and reviewed.. There is 2.3 mm anterolisthesis of C2 i n relation to C3. The vertebral bodies are magalys in height. Degenerate disc disease is noted at C3 -C4 through C6-C7.. Fracture or dislocation. IMPRESSION: No acute findings.
--- NOTE | 2016-12-29 18:16 | ED.PDOC ---
General ED Provider: Dr. SAURABH ROBLEDO JR Chief Complaint: Fall Stated Complaint: pt brought from scu. pt was sitting in chair with chair alarm on, family had just left and alarm went off. when nurse went into room she was laying in floor complaining of pain to back of head and spine [ End ]98.0 69 18 95% 169/91 01/27. afib dementia pacemaker uti stephen r rot cuff cataracts Time Seen by Physician: 16:50 Information Source: Patient, Nurse Exam Limitations: Dementia Nursing and Triage Documentation Reviewed and Agree: No Review of Systems - Review Of Systems Constitutional: Reports: Malaise Eyes: Reports: No symptoms Ears, Nose, Mouth, Throat: Reports: No symptoms Respiratory: Reports: No symptoms Cardiac: Reports: No symptoms GI: Reports: No symptoms : Reports: No symptoms Musculoskeletal: Reports: Back pain (head ache back pain thoracic), Muscle stiffness, Neck pain Skin: Reports: No symptoms Neurological: Reports: Cognitive dysfunction Endocrine: Reports: No symptoms Hematologic/Lymphatic: Reports: No symptoms (head ache back pain thoracic) All Other Systems: Other Past Medical History - Past Medical History Previously Healthy: No Endocrine: Reports: None Cardiovascular: Reports: None Respiratory: Reports: None Hematological: Reports: None Gastrointestinal: Reports: None Genitourinary: Reports: None Neuro/Psych: Reports: None Musculoskeletal: Reports: None Cancer: Reports: None Last Menstrual Period: none - Surgical History General Surgical History: Reports: Unknown - Family History Family History: Reports: Unknown - Social History Smoking Status: Former smoker Hx Substance Use: No Alcohol Screening: None Physical Exam - Physical Exam Appearance: Well-appearing, Thin Pain Distress: Moderate Eyes: NISREEN, EOMI, Conjunctiva clear ENT: Ears normal, Nose normal, Oropharynx normal Neck: Supple Respiratory: Airway patent, Breath sounds clear, Breath sounds equal, Respirations nonlabored Cardiovascular: RRR, Pulses normal, No rub, No murmur GI/: Soft, Nontender, No masses, Bowel sounds normal, No Organomegaly Musculoskeletal: Normal strength, ROM intact, No edema, No calf tenderness ( tender mid cspine and back of scalp no visible lesions patient is not happy with ccollar but accepts for safety) Skin: Warm, Dry, Normal color Neurological: Sensation intact, Motor intact, Reflexes intact, Cranial nerves intact, Alert, Oriented Psychiatric: Affect appropriate, Mood appropriate Critical Care Note - Critical Care Note Total Time (mins): 5 Course - Course Orders, Labs, Meds: Orders Category Date Time Status CT CERVICAL SPINE W/O CONTRAST Stat RADS 12/29/16 16:[address] HEAD W/O CONTRAST Stat RADS 12/29/16 16:[address] PELVIS W/O CONTRAST Stat RADS 12/29/16 16:59 Completed SHOULDER, RIGHT MIN 2V Stat RADS 12/29/16 16:59 Completed Vital Signs: Temp Pulse Resp BP Pulse Ox 12/29/16 16:47 98.0 F 69 18 169/91 H 95 Departure - Departure Time of Disposition: 18:11 Disposition: STILL A PATIENT Discharge Problem: Falls Instructions: Fall Prevention for Older Adults (ED), Head Injury (ED) Condition: Good Pt referred to PMD for follow-up: Yes Additional Instructions: return to care neurochecks every 2 hours for 12 hours caution with neck movement - tender on right call PMD if pain medication indicated Allergies/Adverse Reactions: Allergies No Known Allergies Allergy (Verified 12/29/16 16:57) Home Medications: Ambulatory Orders Aspirin 81 mg PO DAILY 12/21/16 Digoxin 125 mcg PO DAILY 12/21/16 Sulfamethoxazole/Trimethoprim [Bactrim Ds 800/160 mg] 1 tab PO Q12HR #14 tablet 12/21/16
== END 2016-12-29 18:30 | disposition still patient (30) ==
LOC: ED 16:46
DX: S09.90XA Unspecified injury of head, initial encounter (principal); M54.6 Pain in thoracic spine; M54.2 Cervicalgia; W07.XXXA Fall from chair, initial encounter; Y92.239 Unspecified place in hospital as the place of occurrence of the external cause
CPT/HCPCS: 99283

== ENCOUNTER 2017-02-12 08:58 | Outpatient (CLI) ==
[2017-02-12 09:08] LABS: BILIRUBIN,URINE Negative (NEGATIVE); KETONES,URINE Negative (NEGATIVE); LEUKOCYTE ESTERASE ,URINE Trace (NEGATIVE); NITRITE,URINE Negative (NEGATIVE); PROTEIN,URINE Negative (NEGATIVE); URINE, BLOOD Negative (NEGATIVE)
[2017-02-12 09:13] LABS: ADD URINE MICROSCOPIC YES
[2017-02-12 09:14] LABS: BACTERIA,URINE TRACE (NOT PRESENT)
== END 2017-02-12 08:59 ==
LOC: NONPT 08:58
PROVIDERS: ATTEND Family Medicine
DX: R30.0 Dysuria (principal)
CPT/HCPCS: 81001; 87086